=== PATIENT | female | born 1990 | race Caucasian/White ===

== ENCOUNTER 2019-04-16 01:55 | Emergency (ER) | payer SELFPAY ==
[2019-04-16] MEDS ORDERED: IBUPROFEN 400 MG TAB ONE (03:10)
[2019-04-16] MEDS ORDERED: IBUPROFEN 200 MG TAB PO ONE (03:10)
[2019-04-16 04:18] LABS: Urine Culture Reflex Order NOT NEEDED
[2019-04-16 04:51] LABS: Urine Bacteria <20 /HPF (<20); Urine RBC <5 /HPF (NONE SEEN)
--- NOTE | 2019-04-16 06:38 | ER ---
Nurse's Notes [facility] Name: Kirsten Ghotra Age: 28 yrs Sex: Female : 1990 Arrival Date: 04/16/2019 Time: 01:57 Bed 8 Private MD: Mario Villanueva Diagnosis: acute pelvic pain;dysuria;bacterial vaginosis Presentation: 04/16 02:23 Presenting complaint: Patient states: Lower back pain x 2 days. Denies urinary tl2 symptoms. Transition of care: patient was not received from another setting of care. Onset of symptoms was April 14, 2019. Risk Assessment: Do you want to hurt yourself or someone else? Patient reports no desire to harm self or others. Initial Sepsis Screen: Does the patient meet any 2 criteria? No. Patient's initial sepsis screen is negative. Does the patient have a suspected source of infection? No. Patient's initial sepsis screen is negative. Care prior to arrival: None. 02:23 Method Of Arrival: Ambulatory tl2 02:23 Acuity: ANNITA 3 tl2 Triage Assessment: 02:24 General: Appears in no apparent distress. comfortable, Behavior is calm, cooperative, tl2 appropriate for age. Pain: Complains of pain in lumbar area, left low back and right low back. Neuro: Level of Consciousness is awake, alert, obeys commands. : Denies burning with urination, urinary frequency. Musculoskeletal: Circulation, motion, and sensation intact. 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 - Social history:: Smoking status: Patient/guardian denies using tobacco. - Ebola Screening: : No symptoms or risks identified at this time. - Family history:: not pertinent. - Hospitalizations: : No recent hospitalization is reported. Screenin:26 Abuse screen: Denies threats or abuse. Nutritional screening: No deficits noted. tl2 Tuberculosis screening: No symptoms or risk factors identified. Fall Risk None identified. Assessment: 03:00 General: Appears in no apparent distress. Behavior is calm, cooperative, appropriate ea for age. Pain: Complains of pain in right low back and left low back. Neuro: Level of Consciousness is awake, alert, obeys commands, Oriented to person, place, time, situation. Cardiovascular: Patient's skin is warm and dry. Respiratory: Airway is patent Respiratory effort is even, unlabored, Respiratory pattern is regular, symmetrical. GI: Abdomen is non-distended, Bowel sounds present X 4 quads. : Parent/caregiver report the patient having urinary frequency. Derm: Skin is pink, warm \T\ dry. 04:18 Reassessment: Patient and/or family updated on plan of care and expected duration. Pain ea level reassessed. Patient is alert, oriented x 3, equal unlabored respirations, skin warm/dry/pink. 05:41 Reassessment: Patient and/or family updated on plan of care and expected duration. Pain ea level reassessed. Patient is alert, oriented x 3, equal unlabored respirations, skin warm/dry/pink. 06:51 Reassessment: Patient and/or family updated on plan of care and expected duration. Pain ea level reassessed. Patient is alert, oriented x 3, equal unlabored respirations, skin warm/dry/pink. Discharge instructions given to patient, verbalized the understanding of instruction. Patient states feeling better. Patient states symptoms have improved. Vital Signs: 02:24 BP 156 / 99; Pulse 65; Resp 18; Temp 98(O); Pulse Ox 97% on R/A; Weight 70.31 kg; tl2 Height 5 ft. 4 in. (162.56 cm); Pain 2/10; 03:04 BP 133 / 87; Pulse 60; Resp 18; Pulse Ox 98% on R/A; ea 04:23 BP 134 / 87; Pulse 57; Resp 18; Pulse Ox 98% ; ea 06:12 BP 137 / 110; Pulse 57; Resp 18; Pulse Ox 98% on R/A; tl2 06:40 BP 128 / 98; Pulse 60; Resp 18; Temp 97.8; Pulse Ox 98% ; ea 02:24 Body Mass Index 26.61 (70.31 kg, 162.56 cm) tl2 ED Course: 01:57 Patient arrived in ED. ag3 01:57 Mario Villanueva MD is Private Physician. ag3 02:09 Tahir Chou MD is Attending Physician. wa 02:24 Triage completed. tl2 02:24 Arm band placed on right wrist. tl2 02:26 Patient has correct armband on for positive identification. Bed in low position. Call tl2 light in reach. Side rails up X 1. 02:32 Yannick Olson, RN is Primary Nurse. rr5 06:12 Wet Prep Sent. tl2 06:12 GC (GONORR/CHLAMYDIA) Probe Sent. tl2 06:13 Assist provider with pelvic exam: Set up pelvic tray. Performed by Tahir Chou MD tl2 Specimens sent to lab. Patient tolerated well. 06:35 Tahir Chou MD is Referral Physician. wa 06:54 Patient did not have IV access during this emergency room visit. ea Administered Medications: 03:01 Drug: Motrin 600 mg Route: PO; ea 04:20 Follow up: Response: No adverse reaction ea Outcome: 06:37 Discharge ordered by . nc 06:53 Discharged to home ambulatory. ea 06:53 Condition: improved 06:53 Discharge instructions given to patient, Instructed on discharge instructions, follow up and referral plans. medication usage, Demonstrated understanding of instructions, follow-up care, medications, Prescriptions given X 4. 06:54 Patient left the ED. ea Signatures: Modesta Khan RN RN tl2 Melanie Huffman RN RN Tahir Benz MD MD wa Gomez, Alice 3 Yannick Olson, RN RN rr5
--- NOTE | 2019-04-16 06:38 | EDPHYS ---
Physician Documentation [facility] Name: Kirsten Ghotra Age: 28 yrs Sex: Female : 1990 Arrival Date: 04/16/2019 Time: 01:57 Bed 8 Private MD: Mario Villanueva ED Physician Tahir Chou HPI: 04/16 02:28 This 28 yrs old Female presents to ER via Ambulatory with complaints of Back wa Pain, Urinary Frequency. 02:28 The patient presents with pain that is acute. The symptoms are located in the low back. wa Onset: The symptoms/episode began/occurred 2 day(s) ago. The pain does not radiate. Associated signs and symptoms: Pertinent positives: dysuria, urine freq, Pertinent negatives: abdominal pain, hematuria, vomiting. The problem was sustained from unknown cause. Modifying factors: The patient symptoms are alleviated by nothing, the patient symptoms are aggravated by urination. Severity of symptoms: At their worst the symptoms were moderate, in the emergency department the symptoms are unchanged. The patient has experienced a previous episode, dx'd with kidney infection at the time. The patient has not recently seen a physician. 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 - Social history:: Smoking status: Patient/guardian denies using tobacco. - Ebola Screening: : No symptoms or risks identified at this time. - Family history:: not pertinent. - Hospitalizations: : No recent hospitalization is reported. ROS: 02:31 Constitutional: Negative for fever, chills, and weight loss, Eyes: Negative for injury, wa pain, redness, and discharge, ENT: Negative for injury, pain, and discharge, Neck: Negative for injury, pain, and swelling, Cardiovascular: Negative for chest pain, palpitations, and edema, Respiratory: Negative for shortness of breath, cough, wheezing, and pleuritic chest pain, Abdomen/GI: Negative for abdominal pain, nausea, vomiting, diarrhea, and constipation, MS/Extremity: Negative for injury and deformity, Skin: Negative for injury, rash, and discoloration, Neuro: Negative for headache, weakness, numbness, tingling, and seizure, Psych: Negative for depression, anxiety, suicide ideation, homicidal ideation, and hallucinations. 02:31 Back: Positive for pain at rest, Negative for injury or acute deformity. 02:31 : Positive for urinary symptoms, urinary frequency, burning with urination, vaginal discharge, Negative for injury or acute deformity, hematuria. Exam: 02:32 Constitutional: This is a well developed, well nourished patient who is awake, alert, wa and in no acute distress. Head/Face: Normocephalic, atraumatic. Eyes: Pupils equal round and reactive to light, extra-ocular motions intact. Lids and lashes normal. Conjunctiva and sclera are non-icteric and not injected. Cornea within normal limits. Periorbital areas with no swelling, redness, or edema. ENT: Nares patent. No nasal discharge, no septal abnormalities noted. Tympanic membranes are normal and external auditory canals are clear. Oropharynx with no redness, swelling, or masses, exudates, or evidence of obstruction, uvula midline. Mucous membranes moist. Neck: Trachea midline, no thyromegaly or masses palpated, and no cervical lymphadenopathy. Supple, full range of motion without nuchal rigidity, or vertebral point tenderness. No Meningismus. Chest/axilla: Normal chest wall appearance and motion. Nontender with no deformity. No lesions are appreciated. Cardiovascular: Regular rate and rhythm with a normal S1 and S2. No gallops, murmurs, or rubs. Normal PMI, no JVD. No pulse deficits. Respiratory: Lungs have equal breath sounds bilaterally, clear to auscultation and percussion. No rales, rhonchi or wheezes noted. No increased work of breathing, no retractions or nasal flaring. Back: No spinal tenderness. No costovertebral tenderness. Full range of motion. Skin: Warm, dry with normal turgor. Normal color with no rashes, no lesions, and no evidence of cellulitis. MS/ Extremity: Pulses equal, no cyanosis. Neurovascular intact. Full, normal range of motion. Neuro: Awake and alert, GCS 15, oriented to person, place, time, and situation. Cranial nerves II-XII grossly intact. Motor strength 5/5 in all extremities. Sensory grossly intact. Cerebellar exam normal. Normal gait. 02:32 Abdomen/GI: Inspection: abdomen appears normal, Bowel sounds: normal, Palpation: abdomen is soft and non-tender, in all quadrants. 02:32 Back: pain, is absent, ROM is normal. 02:32 : CVA tenderness, is absent. 06:33 : Pelvic Exam: External exam: is normal, Speculum exam: no cervicitis, os that is wa closed, bimanual exam reveals no cervical motion tenderness, discharge, white, curdish, the nurse was present for the exam. Vital Signs: 02:24 BP 156 / 99; Pulse 65; Resp 18; Temp 98(O); Pulse Ox 97% on R/A; Weight 70.31 kg; tl2 Height 5 ft. 4 in. (162.56 cm); Pain 2/10; 03:04 BP 133 / 87; Pulse 60; Resp 18; Pulse Ox 98% on R/A; ea 04:23 BP 134 / 87; Pulse 57; Resp 18; Pulse Ox 98% ; ea 06:12 BP 137 / 110; Pulse 57; Resp 18; Pulse Ox 98% on R/A; tl2 06:40 BP 128 / 98; Pulse 60; Resp 18; Temp 97.8; Pulse Ox 98% ; ea 02:24 Body Mass Index 26.61 (70.31 kg, 162.56 cm) tl2 MDM: 02:09 Patient medically screened. 02:33 Differential diagnosis: Pyelonephritis r/o UTI. 05:13 Data reviewed: vital signs, nurses notes. 06:05 Test interpretation: by ED physician or midlevel provider: UA noted negative. UPT wa negative. pelvic exam: noted d/c consistent with yeast infection. cultures sent. will cover with abx. Response to treatment: the patient's symptoms have markedly improved after treatment. 06:34 Test interpretation: by ED physician or midlevel provider: noted clue cells. wa clinically, yeast although negaitve per wet prep. cover. 04/16 02:04 Order name: Urine Culture [facility] 04/16 02:04 Order name: Urine Microscopic Only; Complete Time: 05:03 [facility] 04/16 02:29 Order name: Urine Dipstick--Ancillary (enter results) [facility] 04/16 02:29 Order name: Urine --Ancillary (enter results) cm6 04/16 05:04 Order name: GC (GONORR/CHLAMYDIA) Probe ks 04/16 05:04 Order name: Wet Prep; Complete Time: 06:32 ks 04/16 02:04 Order name: Urine Test (obtain specimen); Complete Time: 02:23 [facility] 04/16 02:04 Order name: Urine Dipstick-Ancillary (obtain specimen); Complete Time: 02:23 [facility] 04/16 05:04 Order name: Pelvic Exam Setup; Complete Time: 06:12 ks Administered Medications: 03:01 Drug: Motrin 600 mg Route: PO; ea 04:20 Follow up: Response: No adverse reaction ea Disposition: 04/16/19 06:37 Discharged to Home. Impression: acute pelvic pain, dysuria, bacterial vaginosis. - Condition is Stable. - Discharge Instructions: Bacterial Vaginosis. - Prescriptions for Flagyl 500 mg Oral Tablet - take 1 tablet by ORAL route every 12 hours for 7 days; 14 tablet. Zofran 4 mg Oral Tablet - take 1 tablet by ORAL route every 12 hours As needed; 20 tablet. Ibuprofen 600 mg Oral Tablet - take 1 tablet by ORAL route every 6 hours As needed take with food; 30 tablet. Fluconazole 150 mg Oral Tablet - take 1 tablet by ORAL route once daily; 30 tablet. - Work release form, Medication Reconciliation Form, Thank You Letter, Antibiotic Education, Prescription Opioid Use form. - Follow up: Tahir Chou MD; When: 1 - 2 days; Reason: Fever > 102 F, Recheck today's complaints. - Problem is new. - Symptoms have improved. - Notes: take antibiotics as prescribed. follow up with your doctor within the next business day Signatures: Dispatcher [employer] EDMS Niyah Bell, CLEANER AND PREPARER-C CLEANER AND PREPARER-Csnw Modesta Khan RN RN tl2 Melanie Huffman RN RN ea Appiah, William, MD MD ks Corrections: (The following items were deleted from the chart) 06:54 06:37 04/16/2019 06:37 Discharged to Home. Impression: acute pelvic pain; dysuria; ea bacterial vaginosis. Condition is Stable. Forms are Medication Reconciliation Form, Thank You Letter, Antibiotic Education, Prescription Opioid Use. Follow up: Dr. aThir Chou; When: 1 - 2 days; Reason: Fever > 102 F, Recheck today's complaints. Problem is new. Symptoms have improved. wa
[2019-04-16 15:14] LABS: Urine Blood TRACE (NEG); Urine Glucose NEGATIVE (NEG); Urine Protein NEGATIVE (NEG); Urine Specific Gravity >1.030 (1.005-1.030)
[2019-04-18 14:01] LABS: C.trachomatis RNA,TMA Detected (Not Detected)
== END 2019-04-16 06:54 | disposition home or self-care (01) ==
LOC: ER 01:55
DX: N76.0 Acute vaginitis (principal); R30.0 Dysuria; R10.2 Pelvic and perineal pain
CPT/HCPCS: 81003; 81015; 81025; 87086; 87088; 87210; 87490; 87590; 99284

== ENCOUNTER 2019-11-02 01:24 | Emergency (ER) | payer SELFPAY ==
[2019-11-02] MEDS ORDERED: NA CHLORIDE 0.9% 1,000 ML ONE (02:16)
[2019-11-02] MEDS ORDERED: ONDANSETRON 4 MG/2 ML VIAL ONE (02:16)
[2019-11-02] MEDS ORDERED: MORPHINE 2 MG/ML SYR ONE (02:16)
[2019-11-02] MEDS ORDERED: CEFTRIAXONE/SWI 1gm 1 GM/10 ML SYR ONE (02:16)
[2019-11-02 02:17] LABS: Urine Blood 2+ (NEG); Urine Glucose NEGATIVE (NEG); Urine Protein 2+ (NEG); Urine Specific Gravity 1.025 (1.005-1.030)
[2019-11-02 02:37] LABS: Urine Bacteria >50 /HPF (<20)
[2019-11-02 02:39] LABS: Absolute Lymphocytes (CBC) 2.3 K/uL (0.7-4.9); Basophils % 0.4 % (0-1.3); Hematocrit 42.1 % (36.0-45.0); Lymphocytes % 18.1 % (15.3-44.8); MPV 8.1 fL (7.6-11.3)
[2019-11-02 02:39] LABS: Urine Amorphous Sediment 1+ /HPF (NONE SEEN); Urine Culture Reflex Order NOT NEEDED
[2019-11-02 02:46] LABS: ALT/SGPT 50 U/L (12-78); AST/SGOT 19 U/L (15-37); Alkaline Phosphatase 71 U/L (45-117); BUN Blood Urea Nitrogen 14 mg/dL (7-18); Bicarbonate 28 mmol/L (21-32); Bilirubin Direct 0.1 mg/dL (0-0.2); Bilirubin Total 0.5 mg/dL (0.2-1.0); Glucose Level 93 mg/dL (74-106); Lipase 55 U/L (73-393); Potassium 3.8 mmol/L (3.5-5.1); Protein, Total 7.6 g/dL (6.4-8.2); Sodium Level 137 mmol/L (136-145)
--- NOTE | 2019-11-02 03:28 | ER ---
Nurse's Notes [facility] Name: Kirsten Ghotra Age: 29 yrs Sex: Female : 1990 Arrival Date: 11/02/2019 Time: 01:26 Bed 6 Private MD: Diagnosis: Abdominal tenderness;Urinary tract infection, site not specified;Other ovarian cysts Presentation: 11/02 01:40 Presenting complaint: Patient states: "I feel like my intestines are having throbbing jd3 pain. I ate a bag of chips earlier and the went from a throbbing pain to a sharp pain.". Transition of care: patient was not received from another setting of care. Onset of symptoms was November 02, 2019. Risk Assessment: Do you want to hurt yourself or someone else?. Initial Sepsis Screen: Does the patient meet any 2 criteria? No. Patient's initial sepsis screen is negative. Does the patient have a suspected source of infection? No. Patient's initial sepsis screen is negative. Care prior to arrival: None. 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 - Social history:: Smoking status: Patient/guardian denies using tobacco. - Ebola Screening: : Patient negative for fever greater than or equal to 101.5 degrees Fahrenheit, and additional compatible Ebola Virus Disease symptoms. Screenin:44 Abuse screen: Denies threats or abuse. Nutritional screening: No deficits noted. jd3 Tuberculosis screening: No symptoms or risk factors identified. Fall Risk Ambulatory Aid- None/Bed Rest/Nurse Assist (0 pts). Gait- Normal/Bed Rest/Wheelchair (0 pts) Mental Status- Oriented to own ability (0 pts). Total Espinoza Fall Scale indicates No Risk (0-24 pts). Assessment: 01:43 General: Appears in no apparent distress. uncomfortable, Behavior is calm, cooperative, jd3 appropriate for age. Pain: Complains of pain in abdomen Quality of pain is described as sharp, throbbing. Neuro: Level of Consciousness is awake, alert, obeys commands, Oriented to person, place, time, situation. Cardiovascular: Denies chest pain, Capillary refill < 3 seconds Patient's skin is warm and dry. Respiratory: Airway is patent Respiratory effort is even, unlabored, Respiratory pattern is regular, symmetrical, Denies cough, shortness of breath. GI: Abdomen is round non-distended, Bowel sounds present X 4 quads. Abd is soft and non tender X 4 quads. Reports lower abdominal pain, upper abdominal pain, Patient currently denies diarrhea, nausea, vomiting. : Reports burning with urination. EENT: No signs and/or symptoms were reported regarding the EENT system. Derm: Skin is intact, Skin is dry, Skin is normal, Skin temperature is warm. Musculoskeletal: Circulation, motion, and sensation intact. Range of motion: intact in all extremities. 02:22 Reassessment: Patient appears in no apparent distress at this time. No changes from [facility] previously documented assessment. Patient and/or family updated on plan of care and expected duration. Pain level reassessed. Patient is alert, oriented x 3, equal unlabored respirations, skin warm/dry/pink. 03:17 Reassessment: Patient appears in no apparent distress at this time. Patient and/or jd3 family updated on plan of care and expected duration. Pain level reassessed. Patient is alert, oriented x 3, equal unlabored respirations, skin warm/dry/pink. Patient states feeling better. 03:43 Reassessment: Patient appears in no apparent distress at this time. Patient and/or jd3 family updated on plan of care and expected duration. Pain level reassessed. Patient is alert, oriented x 3, equal unlabored respirations, skin warm/dry/pink. Patient denies pain at this time. Patient states feeling better. Vital Signs: 01:42 BP 145 / 99; Pulse 85; Resp 16 S; Temp 98.3(O); Pulse Ox 99% on R/A; Weight 68.04 kg jd3 (R); Height 5 ft. 4 in. (162.56 cm) (R); Pain 5/10; 02:23 BP 141 / 100; Pulse 71; Resp 18 S; Pulse Ox 98% on R/A; jd3 03:17 BP 132 / 84; Pulse 78; Resp 17 S; Pulse Ox 100% on R/A; jd3 01:42 Body Mass Index 25.75 (68.04 kg, 162.56 cm) jd3 ED Course: 01:26 Patient arrived in ED. cl3 01:27 Jimmy Jensen MD is Attending Physician. christian 01:40 David Qiu, RN is Primary Nurse. jd3 01:41 Triage completed. jd3 01:42 Arm band placed on. jd3 01:44 Patient has correct armband on for positive identification. Bed in low position. Call j light in reach. Side rails up X 1. 01:55 Radiology exam delayed due to test not completed at this time. eh 01:55 CT Stone Protocol Sent. ea 02:08 Inserted saline lock: 20 gauge in right antecubital area, using aseptic technique. mw2 Blood collected. 02:31 CT completed. Patient tolerated procedure well. Patient moved to CT via wheelchair. Patient moved back from CT. 02:36 CT Stone Protocol In Process Unspecified. EDMS 03:20 Issac Lewis MD is Referral Physician. christian 03:20 Sara Savage MD is Referral Physician. christian 03:41 No provider procedures requiring assistance completed. IV discontinued, intact, jd3 bleeding controlled, No redness/swelling at site. Pressure dressing applied. Administered Medications: 02:40 Drug: NS 0.9% 1000 ml Route: IV; Rate: 1 bolus; Site: right antecubital; jd3 03:40 Follow up: Response: No adverse reaction; IV Status: Completed infusion; IV Intake: jd3 1000ml 02:40 Drug: Zofran 4 mg Route: IVP; Site: right antecubital; jd3 03:40 Follow up: Response: No adverse reaction jd3 02:41 Drug: morphine 2 mg Route: IVP; Site: right antecubital; jd3 03:40 Follow up: Response: No adverse reaction; RASS: Alert and Calm (0) jd3 02:41 Drug: Rocephin 1 grams Route: IV; Rate: per protocol; Site: right antecubital; jd3 02:45 Follow up: Response: No adverse reaction; IV Status: Completed infusion; IV Intake: [id number] 03:39 Drug: LevaQUIN 500 mg Route: PO; jd3 03:40 Follow up: Response: Medication administered at discharge. jd3 Intake: 02:45 IV: 10ml; Total: 10ml. jd3 03:40 IV: 1000ml; Total: 1010ml. jd3 Outcome: 03:22 Discharge ordered by . christian 03:42 Discharged to home ambulatory, with family. jd3 03:42 Condition: stable 03:42 Discharge instructions given to patient, family, Instructed on discharge instructions, follow up and referral plans. medication usage, Demonstrated understanding of instructions, follow-up care, medications, Prescriptions given X 4. 03:43 Patient left the ED. jd3 Addendum: 11/05/2019 07:35 Addendum: Culture Results: Positive urine culture. No further action required. Bacteria h b sensitive to prescribed antibiotic. Signatures: Dispatcher [employer] EDJimmy Escobedo MD MD cha Hagler, Ervin eh Baxter, Heather, RN Melanie Trevino RN RN ea Davies, Jonathon, RN RN jd3 [place], MyKena mw2 Es Hayes cl3
--- NOTE | 2019-11-02 03:30 | EDPHYS ---
Physician Documentation [facility] Name: Kirsten Ghotra Age: 29 yrs Sex: Female : 1990 Arrival Date: 11/02/2019 Time: 01: Bed 6 Private MD: IVON Physician Jimmy Jensen HPI: 11/02 01:48 This 29 yrs old Female presents to ER via Ambulatory with complaints of christian Abdominal Pain. 01:48 The patient presents with abdominal pain abdominal distention. The patient complains of christian pain in the left low back and left mid back. The pain radiates. Onset: The symptoms/episode began/occurred just prior to arrival, yesterday. Modifying factors: The symptoms are alleviated by nothing. the symptoms are aggravated by. 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 - Social history:: Smoking status: Patient/guardian denies using tobacco. - Ebola Screening: : Patient negative for fever greater than or equal to 101.5 degrees Fahrenheit, and additional compatible Ebola Virus Disease symptoms. ROS: 01:48 Constitutional: Negative for fever, chills, and weight loss, Eyes: Negative for injury, christian pain, redness, and discharge, ENT: Negative for injury, pain, and discharge, Neck: Negative for injury, pain, and swelling, Cardiovascular: Negative for chest pain, palpitations, and edema, Respiratory: Negative for shortness of breath, cough, wheezing, and pleuritic chest pain, Back: Negative for injury and pain, : Negative for injury, bleeding, discharge, and swelling, MS/Extremity: Negative for injury and deformity, Skin: Negative for injury, rash, and discoloration, Neuro: Negative for headache, weakness, numbness, tingling, and seizure, Psych: Negative for depression, anxiety, suicide ideation, homicidal ideation, and hallucinations, Allergy/Immunology: Negative for hives, rash, and allergies, Endocrine: Negative for neck swelling, polydipsia, polyuria, polyphagia, and marked weight changes, Hematologic/Lymphatic: Negative for swollen nodes, abnormal bleeding, and unusual bruising. 01:48 Abdomen/GI: Positive for nausea and vomiting, of the posterior aspect of left lateral abdomen, anterior aspect of left lateral abdomen, left upper quadrant and left lower quadrant. Exam: 01:48 Constitutional: This is a well developed, well nourished patient who is awake, alert, christian and in no acute distress. Head/Face: Normocephalic, atraumatic. Eyes: Pupils equal round and reactive to light, extra-ocular motions intact. Lids and lashes normal. Conjunctiva and sclera are non-icteric and not injected. Cornea within normal limits. Periorbital areas with no swelling, redness, or edema. ENT: Nares patent. No nasal discharge, no septal abnormalities noted. Tympanic membranes are normal and external auditory canals are clear. Oropharynx with no redness, swelling, or masses, exudates, or evidence of obstruction, uvula midline. Mucous membranes moist. Neck: Trachea midline, no thyromegaly or masses palpated, and no cervical lymphadenopathy. Supple, full range of motion without nuchal rigidity, or vertebral point tenderness. No Meningismus. Chest/axilla: Normal chest wall appearance and motion. Nontender with no deformity. No lesions are appreciated. Cardiovascular: Regular rate and rhythm with a normal S1 and S2. No gallops, murmurs, or rubs. Normal PMI, no JVD. No pulse deficits. Respiratory: Lungs have equal breath sounds bilaterally, clear to auscultation and percussion. No rales, rhonchi or wheezes noted. No increased work of breathing, no retractions or nasal flaring. Abdomen/GI: Soft, non-tender, with normal bowel sounds. No distension or tympany. No guarding or rebound. No evidence of tenderness throughout. Back: No spinal tenderness. No costovertebral tenderness. Full range of motion. Skin: Warm, dry with normal turgor. Normal color with no rashes, no lesions, and no evidence of cellulitis. MS/ Extremity: Pulses equal, no cyanosis. Neurovascular intact. Full, normal range of motion. Neuro: Awake and alert, GCS 15, oriented to person, place, time, and situation. Cranial nerves II-XII grossly intact. Motor strength 5/5 in all extremities. Sensory grossly intact. Cerebellar exam normal. Normal gait. Psych: Awake, alert, with orientation to person, place and time. Behavior, mood, and affect are within normal limits. Vital Signs: 01:42 BP 145 / 99; Pulse 85; Resp 16 S; Temp 98.3(O); Pulse Ox 99% on R/A; Weight 68.04 kg jd3 (R); Height 5 ft. 4 in. (162.56 cm) (R); Pain 5/10; 02:23 BP 141 / 100; Pulse 71; Resp 18 S; Pulse Ox 98% on R/A; jd3 03:17 BP 132 / 84; Pulse 78; Resp 17 S; Pulse Ox 100% on R/A; jd3 01:42 Body Mass Index 25.75 (68.04 kg, 162.56 cm) [facility] MDM: 01:27 Patient medically screened. [facility] 01:51 Data reviewed: vital signs, nurses notes. [facility] 11/02 01:41 Order name: Urine Microscopic Only; Complete Time: 03:19 banner 11/02 01:41 Order name: Urine Culture banner 11/02 01:48 Order name: Basic Metabolic Panel; Complete Time: 03:19 [facility] 11/02 01:48 Order name: CBC with Diff; Complete Time: 03:19 [facility] 11/02 01:48 Order name: Creatinine for Radiology; Complete Time: 03:19 [facility] 11/02 01:48 Order name: Hepatic Function; Complete Time: 03:19 [facility] 11/02 01:48 Order name: Lipase; Complete Time: 03:19 [facility] 11/02 01:48 Order name: CT Stone Protocol [facility] 11/02 02:00 Order name: Urine Dipstick--Ancillary (enter results); Complete Time: 02:30 banner 11/02 02:00 Order name: Urine --Ancillary (enter results); Complete Time: 02:30 banner 11/02 01:48 Order name: IV Saline Lock; Complete Time: 01:55 [facility] 11/02 01:48 Order name: Labs collected and sent; Complete Time: 01:55 [facility] 11/02 01:48 Order name: Urine Test (obtain specimen); Complete Time: 01:55 [facility] Administered Medications: 02:40 Drug: NS 0.9% 1000 ml Route: IV; Rate: 1 bolus; Site: right antecubital; jd3 03:40 Follow up: Response: No adverse reaction; IV Status: Completed infusion; IV Intake: jd3 1000ml 02:40 Drug: Zofran 4 mg Route: IVP; Site: right antecubital; jd3 03:40 Follow up: Response: No adverse reaction jd3 02:41 Drug: morphine 2 mg Route: IVP; Site: right antecubital; jd3 03:40 Follow up: Response: No adverse reaction; RASS: Alert and Calm (0) jd3 02:41 Drug: Rocephin 1 grams Route: IV; Rate: per protocol; Site: right antecubital; jd3 02:45 Follow up: Response: No adverse reaction; IV Status: Completed infusion; IV Intake: [id number] 03:39 Drug: LevaQUIN 500 mg Route: PO; jd3 03:40 Follow up: Response: Medication administered at discharge. jd3 Disposition: 11/02/19 03:22 Discharged to Home. Impression: Abdominal tenderness, Urinary tract infection, site not specified, Other ovarian cysts. - Condition is Stable. - Discharge Instructions: Abdominal Pain, Adult, Dysuria, Urinary Tract Infection, Adult, Urinary Tract Infection, Adult, [id number], Abdominal Pain, Adult, [id number]. - Prescriptions for Bentyl 20 mg Oral Tablet - take 1 tablet by ORAL route every 6 hours As needed; 20 tablet. Levaquin 500 mg Oral Tablet - take 1 tablet by ORAL route once daily for 7 days; 7 tablet. Pepcid 20 mg Oral Tablet - take 1 tablet by ORAL route every 12 hours for 10 days; 20 tablet. Zofran 4 mg Oral Tablet - take 1 tablet by ORAL route every 12 hours As needed; 20 tablet. - Medication Reconciliation Form, Thank You Letter, Antibiotic Education, Prescription Opioid Use form. - Follow up: Private Physician; When: 2 - 3 days; Reason: Recheck today's complaints, Continuance of care, Re-evaluation by your physician. Follow up: Issac Lewis MD; When: 2 - 3 days; Reason: Recheck today's complaints, Re-evaluation by your physician. Follow up: Sara Savage MD; When: 2 - 3 days; Reason: Recheck today's complaints, Re-evaluation by your physician. - Problem is new. - Symptoms have improved. Signatures: Dispatcher [employer] [facility] Jimmy Jensen MD MD cha Davies, Jonathon RN RN jd3 Corrections: (The following items were deleted from the chart) 03:24 03:22 11/02/2019 03:22 Discharged to Home. Impression: Abdominal tenderness; Urinary christian tract infection, site not specified. Condition is Stable. Forms are Medication Reconciliation Form, Thank You Letter, Antibiotic Education, Prescription Opioid Use. Follow up: Private Physician; When: 2 - 3 days; Reason: Recheck today's complaints, Continuance of care, Re-evaluation by your physician. Follow up: Issac Lewis; When: 2 - 3 days; Reason: Recheck today's complaints, Re-evaluation by your physician. Follow up: Sara Savage; When: 2 - 3 days; Reason: Recheck today's complaints, Re-evaluation by your physician. Problem is new. Symptoms have improved. christian 03:43 03:24 11/02/2019 03:22 Discharged to Home. Impression: Abdominal tenderness; Urinary jd3 tract infection, site not specified; Other ovarian cysts. Condition is Stable. Discharge Instructions: Abdominal Pain, Adult, Dysuria, Urinary Tract Infection, Adult, Urinary Tract Infection, Adult, Sarz-ci-Ahul, Abdominal Pain, Adult, [id number]. Prescriptions for Bentyl 20 mg Oral Tablet - take 1 tablet by ORAL route every 6 hours As needed; 20 tablet, Levaquin 500 mg Oral Tablet - take 1 tablet by ORAL route once daily for 7 days; 7 tablet, Pepcid 20 mg Oral Tablet - take 1 tablet by ORAL route every 12 hours for 10 days; 20 tablet, Zofran 4 mg Oral Tablet - take 1 tablet by ORAL route every 12 hours As needed; 20 tablet. and Forms are Medication Reconciliation Form, Thank You Letter, Antibiotic Education, Prescription Opioid Use. Follow up: Private Physician; When: 2 - 3 days; Reason: Recheck today's complaints, Continuance of care, Re-evaluation by your physician. Follow up: Issac Lewis; When: 2 - 3 days; Reason: Recheck today's complaints, Re-evaluation by your physician. Follow up: Sara Savage; When: 2 - 3 days; Reason: Recheck today's complaints, Re-evaluation by your physician. Problem is new. Symptoms have improved. christian
[2019-11-02] MEDS ORDERED: levoFLOXacin 500 MG TAB ONE (03:36)
[2019-11-02 04:01] VITALS: TEMP 98.3
[2019-11-02 04:04] VITALS: BP 132/84; O2SAT 100
--- NOTE | 2019-11-02 10:34 | RAD REPORT ---
EXAM DESCRIPTION: CT - Stone Protocol - 11/02/2019 3:44 am CLINICAL HISTORY: The patient is 29 years old and is Female; ABD PAIN TECHNIQUE: Axial computed tomography images of the abdomen and pelvis without intravenous contrast. Sagittal and coronal reformatted images were created and reviewed. This CT exam was performed usi ng one or more of the following dose reduction techniques: automated exposure control, adjustment o f the mA and/or kV according to patient size, and/or use of iterative reconstruction technique. DLP: 559 mGy*cm COMPARISON: None. FINDINGS: LUNG BASES: Lung bases are clear. HEART: Visualized heart is normal. ABDOMEN: LIVER: Diffuse hepatic steatosis. GALLBLADDER AND BILE DUCTS: Unremarkable. No calcified stones. No ductal dilation. PANCREAS: Unremarkable. No ductal dilation. SPLEEN: Unremarkable. No splenomegaly. ADRENALS: Unremarkable. No mass. KIDNEYS AND URETERS: No radiopaque stone, hydronephrosis or large ureter. STOMACH AND BOWEL: Unremarkable. No obstruction. No mucosal thickening. PELVIS: APPENDIX: The appendix is seen and is within normal limits. BLADDER: Bladder is decompressed. No stones. REPRODUCTIVE: Bilateral ovarian cysts measuring up to 3.2 cm on the left. ABDOMEN and PELVIS: INTRAPERITONEAL SPACE: Unremarkable. No free air. No significant fluid collection. BONES/JOINTS: Small retrolisthesis of L4 on L5. Mild posterior wedging of L5. Bilateral L5 spondyl olysis. No dislocation. SOFT TISSUES: Small fat-containing umbilical hernia. VASCULATURE: Unremarkable. No abdominal aortic aneurysm. LYMPH NODES: Unremarkable. No enlarged lymph nodes. IMPRESSION: 1. No acute abdominal or pelvic abnormality. 2. Diffuse hepatic steatosis. 3. Bilateral ovarian cysts measuring up to 3.2 cm on the left. Recommend follow-up pelvic US in 6-1 2 weeks. Reference: J Am Kecia Radiol 2013;10:675-681. 4. Small retrolisthesis of L4 on L5. Mild posterior wedging of L5. Bilateral L5 spondylolysis. Electronically signed by: Carlos A Taylor DO 11/02/2019 2:50 AM CUSTODIAL AIDE Due to temporary technical issues with the PACS/Fluency reporting system, reports are being signed by the in house radiologist as a courtesy to ensure prompt reporting. The interpreting radiologist is f ully responsible for the content of the report.
== END 2019-11-02 03:43 | disposition home or self-care (01) ==
LOC: ER 01:24
DX: N39.0 Urinary tract infection, site not specified (principal); N83.299 Other ovarian cyst, unspecified side
CPT/HCPCS: 36415; 74176; 76377; 80048; 80076; 81003; 81015; 81025; 83690; 85025; 87077; 87086; 87088; 87186; 96361; 96374; 96375; 99284; J0696; J2270; J2405; J7030

== ENCOUNTER 2020-11-25 18:14 | Emergency (ER) | payer SELFPAY ==
--- NOTE | 2020-11-25 22:06 | ER ---
Nurse's Notes [facility] Name: Kirsten Ghotra Age: 30 yrs Sex: Female : 1990 Arrival Date: 11/25/2020 Time: 18:18 Bed 23 Private MD: Diagnosis: Pelvic and perineal pain Presentation: 11/25 19:12 Chief complaint: Patient states: BF was tested and treated for few days ago. Left lower ca1 back pain x 1 week. Denies urinary symptoms. Coronavirus screen: Client denies travel out of the [place] in the last 14 days. At this time, the client does not indicate any symptoms associated with coronavirus-19. Ebola Screen: Patient negative for fever greater than or equal to 101.5 degrees Fahrenheit, and additional compatible Ebola Virus Disease symptoms Patient denies exposure to infectious person. Patient denies travel to an Ebola-affected area in the 21 days before illness onset. No symptoms or risks identified at this time. Initial Sepsis Screen: Does the patient meet any 2 criteria? No. Patient's initial sepsis screen is negative. Does the patient have a suspected source of infection? No. Patient's initial sepsis screen is negative. Risk Assessment: Do you want to hurt yourself or someone else? Patient reports no desire to harm self or others. Onset of symptoms was November 25, 2020. 19:12 Method Of Arrival: Ambulatory ca1 19:12 Acuity: ANNITA 4 ca1 SHANK TAPER: 19:15 LMP 11/17/2020 ca1 Historical: - Allergies: 19:15 No Known Allergies; ca1 - Home Meds: 19:15 None [Active]; ca1 - PMHx: 19:15 None; ca1 - PSHx: 19:15 None; ca1 - Immunization history:: Flu vaccine is not up to date. - Social history:: Smoking status: Patient denies any tobacco usage or history of. Patient/guardian denies using alcohol, street drugs, The patient lives with family. - Family history:: not pertinent. Screenin:53 Abuse screen: Denies threats or abuse. Denies injuries from another. Nutritional zb screening: No deficits noted. Tuberculosis screening: No symptoms or risk factors identified. Fall Risk None identified. Assessment: 21:47 General: Appears in no apparent distress. comfortable, Behavior is calm, cooperative, zb appropriate for age. Neuro: Level of Consciousness is awake, alert, obeys commands, Oriented to person, place, time, situation. Neuro: Neuro: Level of Consciousness is awake, alert, obeys commands, Oriented to person, place, time. Cardiovascular: Capillary refill < 3 seconds in bilateral fingers Patient's skin is warm and dry. Respiratory: Airway is patent Respiratory effort is even, unlabored, Respiratory pattern is regular, symmetrical. GI: Abdomen is round obese. EENT: Derm: Skin is intact, is healthy with good turgor, Skin is dry, Skin is normal, Skin temperature is warm. Musculoskeletal: Circulation, motion, and sensation intact. Capillary refill < 3 seconds, in bilateral fingers. Range of motion: intact in all extremities. Vital Signs: 19:12 BP 135 / 81; Pulse 68; Resp 16 S; Temp 97.8(TE); Pulse Ox 100% on R/A; Weight 72.57 kg ca1 (R); Height 5 ft. 4 in. (162.56 cm) (R); Pain 0/10; 19:12 Body Mass Index 27.46 (72.57 kg, 162.56 cm) ca1 ED Course: 18:18 Patient arrived in ED. ds1 19:15 Triage completed. ca1 19:15 Arm band placed on right wrist. ca1 21:20 Bria Jackson MD is Attending Physician. ma2 21:26 Ashley Torres RN is Primary Nurse. zb 21:53 Patient has correct armband on for positive identification. Bed in low position. Call zb light in reach. Pulse ox on. NIBP on. Door closed. Noise minimized. 22:00 No provider procedures requiring assistance completed. Patient did not have IV access sg during this emergency room visit. Administered Medications: No medications were administered Outcome: 22:04 Discharge ordered by . ma2 22:04 Discharged to home ambulatory, with family. sg 22:04 Condition: good 22:04 Discharge instructions given to patient, Instructed on discharge instructions, follow up and referral plans. safe sex practices, safety practices, Demonstrated understanding of instructions, follow-up care. 22:05 Patient left the ED. sg Signatures: Abdullahi Taylor RN RN Lola Mendez ds1 Alzahri, Mohammad, MD MD ma2 Acob, Germaine, RN RN ca1 Brown, Ashley, RN RN zb
--- NOTE | 2020-11-25 22:06 | EDPHYS ---
Physician Documentation [facility] Name: Kirsten Ghotra Age: 30 yrs Sex: Female : 1990 Arrival Date: 11/25/2020 Time: 18:18 Bed 23 Private MD: ED Physician Bria Jackson HPI: 11/25 22:02 This 30 yrs old Female presents to ER via Ambulatory with complaints of ma2 Pelvic Pain. 22:02 The patient presents with flank pain. Onset: The symptoms/episode began/occurred ma2 gradually, 2 day(s) ago. Associated signs and symptoms: Pertinent positives: Pertinent negatives: constipation. Severity of symptoms: At their worst the symptoms were very mild, in the emergency department the symptoms have resolved. The patient has not experienced similar symptoms in the past. partner has clamydia, patient is here for std testing no symptoms. 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 - Social history:: Smoking status: Patient denies any tobacco usage or history of. Patient/guardian denies using alcohol, street drugs, The patient lives with family. - Family history:: not pertinent. ROS: 22:02 Negative for injury or acute deformity, urinary frequency, flank pain. ma2 22:02 Constitutional: Negative for fever, chills, and weight loss. 22:02 All other systems are negative. Exam: 22:02 Constitutional: This is a well developed, well nourished patient who is awake, alert, ma2 and in no acute distress. Head/Face: Normocephalic, atraumatic. Chest/axilla: Normal chest wall appearance and motion. Nontender with no deformity. No lesions are appreciated. Cardiovascular: Regular rate and rhythm with a normal S1 and S2. No gallops, murmurs, or rubs. Normal PMI, no JVD. No pulse deficits. Respiratory: Lungs have equal breath sounds bilaterally, clear to auscultation and percussion. No rales, rhonchi or wheezes noted. No increased work of breathing, no retractions or nasal flaring. Abdomen/GI: Soft, non-tender, with normal bowel sounds. No distension or tympany. No guarding or rebound. No evidence of tenderness throughout. Back: No spinal tenderness. No costovertebral tenderness. Full range of motion. Skin: Warm, dry with normal turgor. Normal color with no rashes, no lesions, and no evidence of cellulitis. MS/ Extremity: Pulses equal, no cyanosis. Neurovascular intact. Full, normal range of motion. Neuro: Awake and alert, GCS 15, oriented to person, place, time, and situation. Cranial nerves II-XII grossly intact. Motor strength 5/5 in all extremities. Sensory grossly intact. Cerebellar exam normal. Normal gait. Vital Signs: 19:12 BP 135 / 81; Pulse 68; Resp 16 S; Temp 97.8(TE); Pulse Ox 100% on R/A; Weight 72.57 kg ca1 (R); Height 5 ft. 4 in. (162.56 cm) (R); Pain 0/10; 19:12 Body Mass Index 27.46 (72.57 kg, 162.56 cm) ca1 MDM: 21:21 Patient medically screened. ma2 22:02 Differential diagnosis: nonspecific abdominal pain, urinary tract infection, vaginosis. ma2 Data reviewed: vital signs, nurses notes. Counseling: I had a detailed discussion with the patient and/or guardian regarding: the historical points, exam findings, and any diagnostic results supporting the discharge/admit diagnosis, the presence of at least one elevated blood pressure reading (>120/80) during this emergency department visit, the need for outpatient follow up. Response to treatment: the patient's symptoms have resolved after treatment. 11/25 21:55 Order name: Urine --Ancillary (enter results) tt3 11/25 21:55 Order name: Urine Dipstick--Ancillary (enter results) tt3 11/25 21:22 Order name: Urine Dipstick-Ancillary (obtain specimen): test please; Complete ma2 Time: 21:54 11/25 21:54 Order name: Urine Test (obtain specimen); Complete Time: 21:54 tt3 Administered Medications: No medications were administered Disposition: 11/25/20 22:04 Discharged to Home. Impression: Pelvic and perineal pain. - Condition is Stable. - Discharge Instructions: Sexually Transmitted Disease, [id number]. - Medication Reconciliation Form, Thank You Letter, Antibiotic Education, Prescription Opioid Use form. - Follow up: Private Physician; When: Tomorrow; Reason: Continuance of care. Signatures: Dispatcher [employer] EDAbdullahi Hughes RN RN sg Bria Jackson MD MD ma2 Germaine Roberto RN RN [facility] Azam Freire3 Corrections: (The following items were deleted from the chart) 22:05 22:04 11/25/2020 22:04 Discharged to Home. Impression: Pelvic and perineal pain. sg Condition is Stable. Forms are Medication Reconciliation Form, Thank You Letter, Antibiotic Education, Prescription Opioid Use. Follow up: Private Physician; When: Tomorrow; Reason: Continuance of care. [email or web address]
[2020-11-25 22:29] VITALS: BP 135/81; TEMP 97.8; O2SAT 100
[2020-11-25 22:30] LABS: Urine Blood NEGATIVE (NEG); Urine Glucose NEGATIVE (NEG); Urine Protein NEGATIVE (NEG); Urine Specific Gravity >1.030 (1.005-1.030); Urine pH 6.5 (5.0-7.0)
== END 2020-11-25 22:05 | disposition home or self-care (01) ==
LOC: ER 18:14
DX: R10.2 Pelvic and perineal pain (principal)
CPT/HCPCS: 81003; 81025; 99283

== ENCOUNTER 2021-10-08 21:05 | Emergency (ER) | payer SELFPAY ==
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
--- NOTE | 2021-10-08 22:26 | EDPHYS ---
Physician Documentation [facility] Name: Kirsten Ghotra Age: 31 yrs Sex: Female : 1990 Arrival Date: 10/08/2021 Time: 21:07 Bed 12 Private MD: ED Physician Jimmy Jensen HPI: 10/08 22:30 This 31 yrs old Female presents to ER via Ambulatory with complaints of Arm jr8 Injury, Arm Problem. 22:30 A 31-year-old female that presented to the emergency room with complaints of left arm jr8 pain for the past week. Stated that she then started to have tingling to her right thumb. Had pulled hands the other day which aggravated the right hand. Has been splinting the left side for the last week and is now feeling somewhat better.. 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 - Social history:: Smoking status: Patient denies any tobacco usage or history of. Patient uses alcohol, Patient/guardian denies using street drugs. ROS: 22:30 Eyes: Negative for injury, pain, redness, and discharge, ENT: Negative for injury, jr8 pain, and discharge, Neck: Negative for injury, pain, and swelling, Cardiovascular: Negative for chest pain, palpitations, and edema, Respiratory: Negative for shortness of breath, cough, wheezing, and pleuritic chest pain, Back: Negative for injury and pain, Skin: Negative for injury, rash, and discoloration, Neuro: Negative for headache, weakness, numbness, tingling, and seizure. 22:30 MS/extremity: Positive for pain, tenderness, of the Right wrist, left wrist. Exam: 22:30 Constitutional: This is a well developed, well nourished patient who is awake, alert, jr8 and in no acute distress. Neck: Trachea midline, no thyromegaly or masses palpated, and no cervical lymphadenopathy. Supple, full range of motion without nuchal rigidity, or vertebral point tenderness. No Meningismus. Cardiovascular: Regular rate and rhythm with a normal S1 and S2. No gallops, murmurs, or rubs. Normal PMI, no JVD. No pulse deficits. Respiratory: Lungs have equal breath sounds bilaterally, clear to auscultation and percussion. No rales, rhonchi or wheezes noted. No increased work of breathing, no retractions or nasal flaring. Back: No spinal tenderness. No costovertebral tenderness. Full range of motion. Skin: Warm, dry with normal turgor. Normal color with no rashes, no lesions, and no evidence of cellulitis. Neuro: Awake and alert, GCS 15, oriented to person, place, time, and situation. Cranial nerves II-XII grossly intact. Motor strength 5/5 in all extremities. Sensory grossly intact. Cerebellar exam normal. Normal gait. 22:30 Musculoskeletal/extremity: Extremities: grossly normal except: noted in the Left wrist: No pain upon palpation, no tenderness no swelling no bruising and no decrease in range of motion upon examination. Pulses 2+ with normal sensation, noted in the Right wrist: Mild tenderness to the right dorsal wrist. Negative Tinel's. Full range of motion intact with no weakness or atrophy noted. Pulses 2+ with grossly intact sensation. Patient does complain of mild tingling to the thenar region of the right hand., Remainder of extremities unremarkable otherwise.. Vital Signs: 21:12 BP 134 / 96; Pulse 69; Resp 18; Temp 98.1(TE); Pulse Ox 96% on R/A; Weight 70.76 kg; ld1 Height 5 ft. 4 in. (162.56 cm); Pain 0/10; 21:12 Body Mass Index 26.78 (70.76 kg, 162.56 cm) ld1 MDM: 21:57 Patient medically screened. jr8 22:24 Data reviewed: vital signs, nurses notes, and as a result, I will discharge patient. jr8 Data interpreted: Pulse oximetry: on room air is 96 %. Interpretation: normal. Counseling: I had a detailed discussion with the patient and/or guardian regarding: the historical points, exam findings, and any diagnostic results supporting the discharge/admit diagnosis, the need for outpatient follow up, a orthopedic surgeon, to return to the emergency department if symptoms worsen or persist or if there are any questions or concerns that arise at home. ED course: Discussed with patient as of right now the wrist pain that she is experiencing seems to be isolated to that. No findings of carpal tunnel or central neurologic findings in the cervical or brachial plexus region noted on physical exam. We will start her on anti-inflammatory have her brace that wrist if it is not better in the next couple weeks to have her follow-up with orthopedics for possible EMG.. Administered Medications: No medications were administered Disposition: 10/09 08:35 Co-signature as Attending Physician, Jimmy Jensen MD I agree with the assessment and christian plan of care. Disposition Summary: 10/08/21 22:26 Discharge Ordered Location: Home jr8 Problem: new jr8 Symptoms: have improved jr8 Condition: Stable jr8 Diagnosis - Paresthesia of skin jr8 - Pain in right wrist jr8 - Pain in left wrist jr8 Followup: jr8 - With: Lex Fuller MD - When: 10 - 14 days - Reason: If symptoms return, Recheck today's complaints, Continuance of care, Re-evaluation by your physician Discharge Instructions: - Discharge Summary Sheet jr8 - Musculoskeletal Pain jr8 - Paresthesia jr8 - Wrist Pain, Adult jr8 Forms: - Medication Reconciliation Form jr8 - Thank You Letter jr8 - Antibiotic Education jr8 - Prescription Opioid Use jr8 Prescriptions: - meloxicam 15 mg Oral tablet - take 1 tablet by ORAL route once daily As needed; 16 tablet; Refills: 0, jr8 Product Selection Permitted Signatures: Jimmy Jensen MD MD cha Roszak, Josh, PA PA jr8 Angela Steen, RN RN ld1
[2021-10-08 22:50] VITALS: BP 134/96; TEMP 98.1; O2SAT 96
== END 2021-10-08 22:34 | disposition home or self-care (01) ==
LOC: ER 21:05
DX: R20.2 Paresthesia of skin (principal); M25.532 Pain in left wrist; M25.531 Pain in right wrist
CPT/HCPCS: 99282

== ENCOUNTER 2022-01-06 10:12 | Emergency (ER) | payer SELFPAY ==
[2022-01-06] MEDS ORDERED: ONDANSETRON 4 MG/2 ML VIAL ONE (10:48)
[2022-01-06] MEDS ORDERED: DIAZEPAM 5 MG TABLET ONE (10:48)
[2022-01-06 10:54] LABS: Absolute Lymphocytes (CBC) 2.2 K/uL (0.7-4.9); Hematocrit 40.1 % (36.0-45.0); Lymphocytes % 29.9 % (15.3-44.8); MPV 7.6 fL (7.6-11.3); RBC Red Blood Cell Count 4.65 M/uL (3.86-4.86)
[2022-01-06 11:14] LABS: ALT/SGPT 33 U/L (12-78); AST/SGOT 14 U/L (15-37); Albumin 4.1 g/dL (3.4-5.0); Alkaline Phosphatase 52 U/L (45-117); BUN Blood Urea Nitrogen 15 mg/dL (7-18); Bicarbonate 24 mmol/L (21-32); Bilirubin Total 0.3 mg/dL (0.2-1.0); Glucose Level 98 mg/dL (74-106); Magnesium 2.2 mg/dL (1.8-2.4); NT PRO-BNP 7 pg/mL (<125); Potassium 3.8 mmol/L (3.5-5.1); Protein, Total 7.5 g/dL (6.4-8.2); Sodium Level 139 mmol/L (136-145)
[2022-01-06 11:20] LABS: Bilirubin Direct < 0.1 mg/dL (0-0.2)
--- NOTE | 2022-01-06 11:41 | RAD REPORT ---
EXAM DESCRIPTION: RAD - Chest Single View - 01/06/2022 11:08 am CLINICAL HISTORY: CHEST PAIN COMPARISON: Chest Single View dated 12/24/2016 FINDINGS: Lines: None. Lungs: No evidence of edema or pneumonia. Pleural: No significant pleural effusions or pneumothorax. Cardiac: The heart size is within normal limits. Bones: No acute fractures. Other: IMPRESSION: No acute cardiopulmonary disease.
[2022-01-06] MEDS ORDERED: KETOROLAC 30 MG/ML INJ ONE (12:14)
[2022-01-06 12:39] LABS: Urine Blood Negative (Negative); Urine Glucose Negative (Negative); Urine Protein Negative (Negative); Urine Specific Gravity 1.015 (1.005-1.030); Urine pH 6.5 (5.0-7.0)
[2022-01-06 12:58] LABS: Barbiturates NEGATIVE (NEGATIVE); Benzodiazepines NEGATIVE (NEGATIVE); Cocaine NEGATIVE (NEGATIVE); METHAMPHETAM NEGATIVE (NEGATIVE); Methadone NEGATIVE (NEGATIVE); Opiates NEGATIVE (NEGATIVE); Phencyclidine NEGATIVE (NEGATIVE); THC Cannibis NEGATIVE (NEGATIVE)
[2022-01-06 13:20] LABS: Urine Specific Gravity/Preg 1.015 (1.005-1.030)
--- NOTE | 2022-01-06 14:20 | ER ---
Nurse's Notes [facility] Name: Kirsten Ghotra Age: 31 yrs Sex: Female : 1990 Arrival Date: 01/06/2022 Time: 10:17 Bed 8 Private MD: Diagnosis: Chest pain, unspecified Presentation: 01/06 10:24 Chief complaint: Patient states: Chest pain, back pain, SOB x 3 days. Coronavirus jl7 screen: At this time, the client does not indicate any symptoms associated with coronavirus-19. Ebola Screen: No symptoms or risks identified at this time. Initial Sepsis Screen: Does the patient meet any 2 criteria? No. Patient's initial sepsis screen is negative. Does the patient have a suspected source of infection? No. Patient's initial sepsis screen is negative. Risk Assessment: Do you want to hurt yourself or someone else? Patient reports no desire to harm self or others. Onset of symptoms was January 04, 2022. Care prior to arrival: None. 10:24 Method Of Arrival: Ambulatory jl7 10:24 Acuity: ANNITA 3 jl7 Triage Assessment: 10:24 General: Appears in no apparent distress. uncomfortable, Behavior is calm, cooperative, jl7 appropriate for age. Pain: Complains of pain in chest Quality of pain is described as sharp. Pain: Complains of pain in thoracic area. Neuro: Level of Consciousness is awake, alert, obeys commands, Oriented to person, place, time, situation. Cardiovascular: Patient's skin is warm and dry. Rhythm is regular. Respiratory: Airway is patent Respiratory effort is even, unlabored, Respiratory pattern is regular, symmetrical. Derm: Skin is pink, warm \T\ dry. 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 - Social history:: Smoking status: Patient denies any tobacco usage or history of. Patient uses street drugs, marijuana. Screenin:23 Abuse screen: Denies threats or abuse. Nutritional screening: No deficits noted. ll1 Tuberculosis screening: No symptoms or risk factors identified. 11:51 Fall Risk IV access (20 points). Total Espinoza Fall Scale indicates No Risk (0-24 pts). jl7 Assessment: 10:30 General: See triage assessment. jl7 11:30 Reassessment: No changes from previously documented assessment. Patient and/or family ll1 updated on plan of care and expected duration. Pain level reassessed. Patient is alert, oriented x 3, equal unlabored respirations, skin warm/dry/pink. 12:30 Reassessment: No changes from previously documented assessment. Patient and/or family ll1 updated on plan of care and expected duration. Pain level reassessed. Patient is alert, oriented x 3, equal unlabored respirations, skin warm/dry/pink. 13:30 Reassessment: No changes from previously documented assessment. Patient and/or family ll1 updated on plan of care and expected duration. Pain level reassessed. Patient is alert, oriented x 3, equal unlabored respirations, skin warm/dry/pink. Pain: Denies pain. Pain does not radiate. Pain began 4 hours ago. Vital Signs: 10:24 BP 139 / 85; Pulse 70; Resp 15; Temp 97.9; Pulse Ox 100% on R/A; Weight 72.57 kg; jl7 Height 5 ft. 4 in. (162.56 cm); Pain 5/10; 11:51 BP 127 / 90; Pulse 61; Resp 15; Pulse Ox 98% ; jl7 13:11 BP 120 / 79; Pulse 58; Resp 15; Pulse Ox 100% on R/A; ll1 14:08 BP 119 / 84; Pulse 56; Resp 16; Pulse Ox 98% on R/A; ll1 10:24 Body Mass Index 27.46 (72.57 kg, 162.56 cm) jl7 ED Course: 10:17 Patient arrived in ED. kz 10:20 Jose Whaley NP is PHCP. pm1 10:20 Bria Jackson MD is Attending Physician. pm1 10:22 Hali Hayes RN is Primary Nurse. ll1 10:22 Arm band placed on Patient placed in an exam room, on a stretcher. ll1 10:25 Triage completed. jl7 10:30 Patient has correct armband on for positive identification. Placed in gown. Bed in low jl7 position. Call light in reach. Side rails up X 1. site monitor on. Pulse ox on. NIBP on. 10:49 Inserted saline lock: 22 gauge in right antecubital area, using aseptic technique. ll1 Blood collected. 10:50 Initial lab(s) drawn, by ED staff, sent to lab. EKG done, by ED staff, reviewed by jl7 Bria Jackson MD. 10:50 Patient maintains SpO2 saturation greater than 95% on room air. jl7 11:08 XRAY Chest (1 view) In Process Unspecified. EDMS 14:29 No provider procedures requiring assistance completed. IV discontinued, intact, ld1 bleeding controlled, No redness/swelling at site. Administered Medications: 10:48 Drug: Zofran (Ondansetron) 4 mg Route: IVP; Site: right antecubital; ll1 11:13 Follow up: Response: No adverse reaction ll1 10:49 Drug: Valium (diazepam) 2 mg Route: PO; ll1 11:12 Follow up: Response: No adverse reaction ll1 12:19 Drug: Ketorolac 30 mg Route: IVP; Site: right antecubital; ll1 13:12 Follow up: Response: No adverse reaction; Pain is decreased; RASS: Alert and Calm (0) [facility] Outcome: 14:19 Discharge ordered by MD. pm1 14:29 Discharged to home ambulatory. ld1 14:29 Condition: stable 14:29 Discharge instructions given to patient, Instructed on discharge instructions, follow up and referral plans. Demonstrated understanding of instructions, follow-up care. 14:30 Patient left the ED. ld1 Signatures: Dispatcher [employer] EDMS Jose Whaley, BJ SPREADING MACHINE OPERATOR pm1 Ana Villanueva RN RN jl7 Hali Hayes RN RN ll1 Angela Steen RN RN ld1 Ana Jiang
--- NOTE | 2022-01-06 14:20 | EDPHYS ---
Physician Documentation [facility] Name: Kirsten Ghotra Age: 31 yrs Sex: Female : 1990 Arrival Date: 01/06/2022 Time: 10:17 Bed 8 Private MD: ED Physician Bria Jackson HPI: 01/06 10:36 This 31 yrs old Female presents to ER via Ambulatory with complaints of Chest pm1 Pain. 10:36 The patient or guardian reports chest pain that is located primarily in the xiphoid pm1 area. The pain radiates to back. Associated signs and symptoms: Pertinent positives: Anxiety. Onset pain and anxiety after smoking marijuana, Pertinent negatives: shortness of breath. The chest pain is described as sharp. Duration: The patient or guardian reports a single episode, that is still ongoing. Modifying factors: the symptoms are aggravated by marijuana. Severity of pain: in the emergency department the pain is unchanged. The patient has not experienced similar symptoms in the past. The patient has not recently seen a physician. 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 - Social history:: Smoking status: Patient denies any tobacco usage or history of. Patient uses street drugs, marijuana. ROS: 10:36 Constitutional: Negative for fever, chills, and weight loss. pm1 10:36 Respiratory: Negative for shortness of breath, cough, wheezing, and pleuritic chest pain, Abdomen/GI: Negative for abdominal pain, nausea, vomiting, diarrhea, and constipation, Back: Negative for injury and pain, MS/Extremity: Negative for injury and deformity, Skin: Negative for injury, rash, and discoloration, Neuro: Negative for headache, weakness, numbness, tingling, and seizure. 10:36 Cardiovascular: Positive for chest pain, Negative for edema, orthopnea, palpitations. 10:36 All other systems are negative. Exam: 10:36 Constitutional: This is a well developed, well nourished patient who is awake, alert, pm1 and in no acute distress. Head/Face: Normocephalic, atraumatic. 10:36 Back: No spinal tenderness. No costovertebral tenderness. Full range of motion. 10:36 Skin: Warm, dry with normal turgor. Normal color with no rashes, no lesions, and no evidence of cellulitis. MS/ Extremity: Pulses equal, no cyanosis. Neurovascular intact. Full, normal range of motion. 10:36 Cardiovascular: Exam negative for acute changes, Rate: normal, Rhythm: regular, Pulses: no pulse deficits are appreciated, Heart sounds: normal, Edema: is not appreciated. 10:36 Respiratory: Exam negative for acute changes, respiratory distress, shortness of breath, Breath sounds: are clear throughout. 10:36 Abdomen/GI: Exam negative for acute changes, Inspection: abdomen appears normal, Palpation: abdomen is soft and non-tender, in all quadrants. 10:36 Neuro: Exam negative for acute changes, Orientation: is normal, Mentation: is normal, Motor: is normal, moves all fours. Vital Signs: 10:24 BP 139 / 85; Pulse 70; Resp 15; Temp 97.9; Pulse Ox 100% on R/A; Weight 72.57 kg; jl7 Height 5 ft. 4 in. (162.56 cm); Pain 5/10; 11:51 BP 127 / 90; Pulse 61; Resp 15; Pulse Ox 98% ; jl7 13:11 BP 120 / 79; Pulse 58; Resp 15; Pulse Ox 100% on R/A; ll1 14:08 BP 119 / 84; Pulse 56; Resp 16; Pulse Ox 98% on R/A; ll1 10:24 Body Mass Index 27.46 (72.57 kg, 162.56 cm) jl7 MDM: 10:34 Patient medically screened. pm1 10:40 Data reviewed: vital signs. Data interpreted: Pulse oximetry: on room air is 100 %. pm1 Interpretation: normal. 14:18 Counseling: I had a detailed discussion with the patient and/or guardian regarding: the pm1 historical points, exam findings, and any diagnostic results supporting the discharge/admit diagnosis, lab results, radiology results, the need for outpatient follow up, to return to the emergency department if symptoms worsen or persist or if there are any questions or concerns that arise at home. 14:20 ED course: Patient reports smoking marijuana prior to chest pain. UDS negative. pm1 Possibly patient smoked synthetic causing her current symptoms of anxiety and chest pain. 01/06 10:34 Order name: Basic Metabolic Panel; Complete Time: 11:22 1 01/06 10:34 Order name: CBC with Diff; Complete Time: 11:22 1 01/06 10:34 Order name: LFT's; Complete Time: 11:22 1 01/06 10:34 Order name: Magnesium; Complete Time: 11:22 01/06 10:34 Order name: NT PRO-BNP; Complete Time: 11:22 1 01/06 10:34 Order name: PT-INR; Complete Time: 11:22 01/06 10:34 Order name: Troponin HS; Complete Time: 11:22 [facility] 01/06 10:34 Order name: XRAY Chest (1 view); Complete Time: 11:44 1 01/06 10:41 Order name: UDS; Complete Time: 14:14 pm1 01/06 12:39 Order name: Urine Dipstick-Ancillary EDMS 01/06 12:39 Order name: Urine --Ancillary (enter results); Complete Time: 14:14 bd 01/06 10:30 Order name: EKG; Complete Time: 10:31 1 01/06 10:30 Order name: EKG - Nurse/Tech; Complete Time: 10:30 [facility] 01/06 10:34 Order name: IV Saline Lock; Complete Time: 10:34 1 01/06 10:34 Order name: Labs collected and sent; Complete Time: 10:34 [facility] 01/06 10:41 Order name: Urine Dipstick-Ancillary (obtain specimen); Complete Time: 13:11 pm1 01/06 10:41 Order name: Urine Test (obtain specimen); Complete Time: 13:11 pm1 Administered Medications: 10:48 Drug: Zofran (Ondansetron) 4 mg Route: IVP; Site: right antecubital; ll1 11:13 Follow up: Response: No adverse reaction ll1 10:49 Drug: Valium (diazepam) 2 mg Route: PO; ll1 11:12 Follow up: Response: No adverse reaction ll1 12:19 Drug: Ketorolac 30 mg Route: IVP; Site: right antecubital; ll1 13:12 Follow up: Response: No adverse reaction; Pain is decreased; RASS: Alert and Calm (0) ll1 Disposition Summary: 01/06/22 14:19 Discharge Ordered Location: Home pm1 Problem: new pm1 Symptoms: have improved pm1 Condition: Stable pm1 Diagnosis - Chest pain, unspecified pm1 Followup: pm1 - With: Emergency Department - When: As needed - Reason: Worsening of condition Followup: pm1 - With: Private Physician - When: 2 - 3 days - Reason: Recheck today's complaints, Continuance of care, Re-evaluation by your physician Discharge Instructions: - Discharge Summary Sheet pm1 - Nonspecific Chest Pain, Adult pm1 Forms: - Medication Reconciliation Form pm1 - Thank You Letter pm1 - Antibiotic Education pm1 - Prescription Opioid Use pm1 Signatures: Dispatcher [employer] EDJose Johnson NP WOMEN DESIGNER pm1 Ana Villanueva RN RN jl7 Hali Hayes RN RN ll1
[2022-01-06 15:03] VITALS: TEMP 97.9
[2022-01-06 15:06] VITALS: BP 119/84; O2SAT 98
== END 2022-01-06 14:30 | disposition home or self-care (01) ==
LOC: ER 10:12
DX: R07.9 Chest pain, unspecified (principal)
CPT/HCPCS: 36415; 71045; 80048; 80076; 80307; 81003; 81025; 83735; 83880; 84484; 85025; 85610; 93005; 96374; 96375; 99285; J2405

== ENCOUNTER 2022-02-03 19:09 | Emergency (ER) | payer SELFPAY ==
[2022-02-03] MEDS ORDERED: NA CHLORIDE 0.9% 500 ML ONE (19:51)
[2022-02-03] MEDS ORDERED: ASPIRIN 81 MG CHEWABLE TABLET ONE (19:51)
[2022-02-03 20:15] LABS: Absolute Lymphocytes (CBC) 2.3 K/uL (0.7-4.9); Hematocrit 37.9 % (36.0-45.0); Lymphocytes % 31.2 % (15.3-44.8); MPV 7.5 fL (7.6-11.3); RBC Red Blood Cell Count 4.44 M/uL (3.86-4.86)
--- NOTE | 2022-02-03 20:35 | RAD REPORT ---
EXAM DESCRIPTION: Michelle Osman And Yuly (2 Views)02/03/2022 8:18 pm CLINICAL HISTORY: Cough COMPARISON: January 06, 2022 FINDINGS: The lungs appear clear of acute infiltrate. The heart is normal size IMPRESSION: No acute abnormalities displayed
[2022-02-03 20:38] LABS: ALT/SGPT 44 U/L (12-78); AST/SGOT 16 U/L (15-37); Albumin 4.1 g/dL (3.4-5.0); Alkaline Phosphatase 52 U/L (45-117); BUN Blood Urea Nitrogen 14 mg/dL (7-18); Bicarbonate 27 mmol/L (21-32); Bilirubin Total 0.3 mg/dL (0.2-1.0); Glucose Level 86 mg/dL (74-106); Magnesium 2.2 mg/dL (1.8-2.4); Potassium 3.6 mmol/L (3.5-5.1); Protein, Total 7.4 g/dL (6.4-8.2); Sodium Level 139 mmol/L (136-145)
[2022-02-03 20:46] LABS: Troponin High Sensitivity < 3.0 pg/mL (<58.9)
--- NOTE | 2022-02-03 20:50 | ER ---
Nurse's Notes [facility] Name: Kirsten Ghotra Age: 31 yrs Sex: Female : 1990 Arrival Date: 02/03/2022 Time: 19:12 Bed 9 Private MD: Diagnosis: Palpitations;Cough Presentation: 02/03 19:15 Chief complaint: Patient states: feeling sick for the past week. sore throat, cough and lg3 headache. feels like it has moved down into lungs. coughing so much causing nausea and vomiting. now starting to feel palpitations. . Coronavirus screen: Client denies travel out of the [place] in the last 14 days. At this time, the client does not indicate any symptoms associated with coronavirus-19. Ebola Screen: No symptoms or risks identified at this time. Initial Sepsis Screen: Does the patient meet any 2 criteria? No. Patient's initial sepsis screen is negative. Does the patient have a suspected source of infection? No. Patient's initial sepsis screen is negative. Risk Assessment: Do you want to hurt yourself or someone else? Patient reports no desire to harm self or others. Onset of symptoms was January 24, 2022. 19:15 Method Of Arrival: Ambulatory lg3 19:15 Acuity: ANNITA 3 lg3 Triage Assessment: 19:19 General: Appears in no apparent distress. comfortable, Behavior is calm, cooperative, lg3 anxious. Pain: Complains of pain in chest Quality of pain is described as pressure. EENT: No deficits noted. No signs and/or symptoms were reported regarding the EENT system. Neuro: No deficits noted. Level of Consciousness is awake, alert, obeys commands, Oriented to person, place, time, situation. Cardiovascular: No deficits noted. Reports palpitations, Capillary refill < 3 seconds Clubbing of nail beds is absent JVD is absent Patient's skin is warm and dry. Respiratory: No deficits noted. Reports cough that is dry, persistent. GI: No deficits noted. No signs and/or symptoms were reported involving the gastrointestinal system. Abdomen is round non-distended. : No deficits noted. No signs and/or symptoms were reported regarding the genitourinary system. Derm: No deficits noted. No signs and/or symptoms reported regarding the dermatologic system. Skin is intact, is healthy with good turgor, Skin is dry. Musculoskeletal: No deficits noted. No signs and/or symptoms reported regarding the musculoskeletal system. Circulation, motion, and sensation intact. Range of motion: intact in all extremities. 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 - Social history:: Smoking status: Patient/guardian denies using tobacco, Patient uses alcohol, occasionally. - Hospitalizations: : No recent hospitalization is reported. Screenin:22 Abuse screen: Denies threats or abuse. Denies injuries from another. Nutritional lg3 screening: No deficits noted. Tuberculosis screening: No symptoms or risk factors identified. Fall Risk None identified. Vital Signs: 19:15 BP 138 / 89; Pulse 68; Resp 17 S; Temp 97.5(TE); Pulse Ox 100% on R/A; Weight 72.57 kg lg3 (R); Height 5 ft. 4 in. (162.56 cm) (R); Pain 0/10; 19:57 BP 142 / 88; Pulse 79; Resp 18; Pulse Ox 99% on R/A; ab2 21:27 BP 136 / 79; Pulse 76; Resp 17; Pulse Ox 98% on R/A; ab2 19:15 Body Mass Index 27.46 (72.57 kg, 162.56 cm) lg3 ED Course: 19:12 Patient arrived in ED. kc5 19:19 Triage completed. lg3 19:19 Arm band placed on right wrist. lg3 19:23 Phong Guevara is Primary Nurse. ab2 19:30 Jimmy Jensen MD is Attending Physician. christian 19:57 Patient has correct armband on for positive identification. Bed in low position. Call ab2 light in reach. Side rails up X2. 19:58 Troponin High Sensitivity Sent. ab2 19:58 Magnesium Sent. ab2 19:58 TSH Sent. ab2 19:58 D-Dimer Sent. ab2 20:19 Chest Pa And Lat (2 Views) XRAY In Process Unspecified. EDMS 20:49 Stuart Hanks MD is Referral Physician. [facility] 21:28 No provider procedures requiring assistance completed. IV discontinued, intact, ab2 bleeding controlled, No redness/swelling at site. Pressure dressing applied. Administered Medications: 19:58 Drug: NS 0.9% 500 ml Route: IV; Rate: bolus; Site: right antecubital; ab2 21:27 Follow up: Response: No adverse reaction; IV Status: Completed infusion ab2 19:58 Drug: Aspirin Chewable Tablet 81 mg Route: PO; ab2 21:27 Follow up: Response: No adverse reaction ab2 Outcome: 20:49 Discharge ordered by . christian 21:28 Discharged to home ambulatory. ab2 21:28 Condition: good 21:28 Discharge instructions given to patient, Instructed on discharge instructions, follow up and referral plans. Demonstrated understanding of instructions, follow-up care, medications, Prescriptions given X 2. 21:28 Patient left the ED. ab2 Signatures: Dispatcher [employer] EDSC Jimmy Jensen MD MD cha Gibson, Lacie, SCARLETT RN lg3 Cathy Hanson kc5 Phong Guevara ab2
--- NOTE | 2022-02-03 20:50 | EDPHYS ---
Physician Documentation [facility] Name: Kirsten Ghotra Age: 31 yrs Sex: Female : 1990 Arrival Date: 02/03/2022 Time: 19:12 Bed 9 Private MD: ED Physician Jimmy Jensen HPI: 02/03 20:16 This 31 yrs old Female presents to ER via Ambulatory with complaints of christian Palpitations. 20:16 The patient presents with a history of irregular heart beat, heart skipping beats. christian Context: The symptoms occur with light activity. Onset: The symptoms/episode began/occurred 3 day(s) ago. Duration: The patient or guardian reports multiple episodes, with no pattern. Modifying factors: The symptoms are aggravated by nothing. The symptoms are alleviated by lying down. Associated signs and symptoms: Pertinent positives:. Associated signs and symptoms: Pertinent positives: cough. Severity of symptoms: At their worst the symptoms were mild in the emergency department the symptoms have improved. The patient has experienced similar episodes in the past, a few times. 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 - Social history:: Smoking status: Patient/guardian denies using tobacco, Patient uses alcohol, occasionally. - Hospitalizations: : No recent hospitalization is reported. ROS: 20:16 Constitutional: Negative for fever, chills, and weight loss, Eyes: Negative for injury, christian pain, redness, and discharge, ENT: Negative for injury, pain, and discharge, Neck: Negative for injury, pain, and swelling, Abdomen/GI: Negative for abdominal pain, nausea, vomiting, diarrhea, and constipation, Back: Negative for injury and pain, : Negative for injury, bleeding, discharge, and swelling, MS/Extremity: Negative for injury and deformity, Skin: Negative for injury, rash, and discoloration, Neuro: Negative for headache, weakness, numbness, tingling, and seizure, Psych: Negative for depression, anxiety, suicide ideation, homicidal ideation, and hallucinations, Allergy/Immunology: Negative for hives, rash, and allergies, Endocrine: Negative for neck swelling, polydipsia, polyuria, polyphagia, and marked weight changes, Hematologic/Lymphatic: Negative for swollen nodes, abnormal bleeding, and unusual bruising. 20:16 Cardiovascular: Positive for palpitations. 20:16 Respiratory: Positive for cough, with no reported sputum. Exam: 20:16 Constitutional: This is a well developed, well nourished patient who is awake, alert, christian and in no acute distress. Head/Face: Normocephalic, atraumatic. Eyes: Pupils equal round and reactive to light, extra-ocular motions intact. Lids and lashes normal. Conjunctiva and sclera are non-icteric and not injected. Cornea within normal limits. Periorbital areas with no swelling, redness, or edema. ENT: Nares patent. No nasal discharge, no septal abnormalities noted. Tympanic membranes are normal and external auditory canals are clear. Oropharynx with no redness, swelling, or masses, exudates, or evidence of obstruction, uvula midline. Mucous membranes moist. Neck: Trachea midline, no thyromegaly or masses palpated, and no cervical lymphadenopathy. Supple, full range of motion without nuchal rigidity, or vertebral point tenderness. No Meningismus. Chest/axilla: Normal chest wall appearance and motion. Nontender with no deformity. No lesions are appreciated. Cardiovascular: Regular rate and rhythm with a normal S1 and S2. No gallops, murmurs, or rubs. Normal PMI, no JVD. No pulse deficits. Respiratory: Lungs have equal breath sounds bilaterally, clear to auscultation and percussion. No rales, rhonchi or wheezes noted. No increased work of breathing, no retractions or nasal flaring. Abdomen/GI: Soft, non-tender, with normal bowel sounds. No distension or tympany. No guarding or rebound. No evidence of tenderness throughout. Back: No spinal tenderness. No costovertebral tenderness. Full range of motion. Skin: Warm, dry with normal turgor. Normal color with no rashes, no lesions, and no evidence of cellulitis. MS/ Extremity: Pulses equal, no cyanosis. Neurovascular intact. Full, normal range of motion. Neuro: Awake and alert, GCS 15, oriented to person, place, time, and situation. Cranial nerves II-XII grossly intact. Motor strength 5/5 in all extremities. Sensory grossly intact. Cerebellar exam normal. Normal gait. Psych: Awake, alert, with orientation to person, place and time. Behavior, mood, and affect are within normal limits. 20:16 Musculoskeletal/extremity: DVT Exam: No signs of deep vein thrombosis. no pain, no swelling, no tenderness, negative Homans' sign noted on exam, no appreciated bluish discoloration, no erythema, no increased warmth. 20:25 ECG was reviewed by the Attending Physician. christian Vital Signs: 19:15 BP 138 / 89; Pulse 68; Resp 17 S; Temp 97.5(TE); Pulse Ox 100% on R/A; Weight 72.57 kg lg3 (R); Height 5 ft. 4 in. (162.56 cm) (R); Pain 0/10; 19:57 BP 142 / 88; Pulse 79; Resp 18; Pulse Ox 99% on R/A; ab2 21:27 BP 136 / 79; Pulse 76; Resp 17; Pulse Ox 98% on R/A; ab2 19:15 Body Mass Index 27.46 (72.57 kg, 162.56 cm) lg3 MDM: 19:30 Patient medically screened. christian 20:18 RADHA Risk Score: Total Score = 0. Differential diagnosis: arrythmia, dehydration. Data christian reviewed: vital signs, nurses notes, lab test result(s), EKG, radiologic studies, plain films. 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 Test interpretation: by ED physician or midlevel provider: ECG, plain radiologic studies. Counseling: I had a detailed discussion with the patient and/or guardian regarding: the historical points, exam findings, and any diagnostic results supporting the discharge/admit diagnosis, lab results, radiology results, the need for outpatient follow up, for definitive care, a sample body builder, a family practitioner. 02/03 19:32 Order name: CBC with Diff; Complete Time: 20:25 [facility] 02/03 19:32 Order name: Comprehensive Metabolic Panel; Complete Time: 20:48 [facility] 02/03 19:32 Order name: D-Dimer [facility] 02/03 19: Order name: Magnesium; Complete Time: 20:48 [facility] 02/03 19:32 Order name: Troponin High Sensitivity; Complete Time: 20:48 [facility] 02/03 19:32 Order name: EKG; Complete Time: 19:33 [facility] 02/03 19:32 Order name: EKG - Nurse/Tech; Complete Time: 19:58 [facility] 02/03 19:32 Order name: TSH; Complete Time: 20:48 [facility] 02/03 20:09 Order name: Chest Pa And Lat (2 Views) XRAY; Complete Time: 20:48 [facility] EC:25 Rate is 61 beats/min. Rhythm is regular. QRS [place] is Normal. PA interval is normal. QRS christian interval is normal. QT interval is normal. No Q waves. T waves are Normal. No ST changes noted. Clinical impression: NSR w/ Non-specific ST/T Changes and No evidence of ischemia. Interpreted by me. Reviewed by me. Administered Medications: 19:58 Drug: NS 0.9% 500 ml Route: IV; Rate: bolus; Site: right antecubital; ab2 21:27 Follow up: Response: No adverse reaction; IV Status: Completed infusion ab2 19:58 Drug: Aspirin Chewable Tablet 81 mg Route: PO; ab2 21:27 Follow up: Response: No adverse reaction ab2 Disposition Summary: 02/03/22 20:49 Discharge Ordered Location: Home christian Problem: new christian Symptoms: have improved christian Condition: Stable christian Diagnosis - Palpitations christian - Cough christian Followup: christian - With: Private Physician - When: 2 - 3 days - Reason: Recheck today's complaints, Continuance of care, Re-evaluation by your physician Followup: christian - With: - When: 2 - 3 days - Reason: Recheck today's complaints, Continuance of care, Re-evaluation by your physician Discharge Instructions: - Discharge Summary Sheet christian - Palpitations christian - Cool Mist Vaporizer christian - Cough, Adult, [id number] christian - Aspirin and Your Heart christian - Palpitations, [id number] christian - Cough, Adult christian Forms: - Medication Reconciliation Form christian - Thank You Letter christian - Antibiotic Education christian - Prescription Opioid Use christian Prescriptions: - Zithromax Z-Martell 250 mg Oral Tablet - take 1 tablet by ORAL route as directed for 5 days Day 1 - take two (2) tablets christian one time. Day 2, 3, 4 , 5 take one (1) tablet once daily.; 6 tablet; Refills: 0, Product Selection Permitted - Bromfed DM 2-30-10 mg/5 mL Oral syrup - take 7.5 milliliter by ORAL route every 4 hours; 160 milliliter; Refills: 0, jr8 Product Selection Permitted Signatures: Dispatcher [employer] Jimmy Vanegas MD MD cha Gibson, Lacie, RN RN lg3 Phong Guevara
[2022-02-03 22:25] VITALS: TEMP 97.5
[2022-02-03 22:29] VITALS: BP 136/79; O2SAT 98
--- NOTE | 2022-02-08 11:28 | EKG ---
Test Date: 2022-02-03 Test Time: 19:28:43 As400 Developer: MEASUREMENT RESULTS: Intervals: Rate: 61 MA: 176 QRSD: 96 QT: 398 QTc: 400 [place]: P: 49 MA: 176 QRS: 89 T: 49 INTERPRETIVE STATEMENTS: Normal sinus rhythm Nonspecific T wave abnormality Abnormal ECG Compared to ECG 01/06/2022 10:27:01 T-wave abnormality now present Sinus arrhythmia no longer present Electronically Signed On 02-08-22 11:14:32 CDT by Stuart Hanks
== END 2022-02-03 21:28 | disposition home or self-care (01) ==
LOC: ER 19:09
DX: R00.2 Palpitations (principal); R05.9 Cough, unspecified
CPT/HCPCS: 36415; 71046; 80053; 83735; 84443; 84484; 85025; 85379; 93005; 96360; 99284; J7040

== ENCOUNTER 2022-04-21 14:36 | Emergency (ER) | payer SELFPAY ==
--- OUTSIDE RECORDS SUMMARY | 2022-04-21 14:39 | XMS REPORT | Continuity of Care Document ---
:1990 Author Organization [facility] t Address [address] [place] [address] [address] [place] [address] Care Team Providers Name Role Phone JAMES Attending Clinician Unavailable Problems This patient has no known problems. Allergies, Adverse Reactions, Alerts This patient has no known allergies or adverse reactions. Medications This patient has no known medications. Procedures This patient has no known procedures. Encounters Start End Encounter Admission Attending Care Care Encounter Source Date/Time Date/Time Type Type Clinicians Facility Department ID 2022-04-13 2022-04-13 Outpatient [facility] [id number] 00:00:00 00:00:00 [facility] [address] Results This patient has no known results.
--- NOTE | 2022-04-21 15:22 | EDPHYS ---
Physician Documentation [facility] Name: Kirsten Ghotra Age: 31 yrs Sex: Female : 1990 Arrival Date: 04/21/2022 Time: 14:40 Bed 9 Private MD: ED Physician Chris Be HPI: 04/21 15:21 This 31 yrs old Female presents to ER via Ambulatory with complaints of Tick pm1 Bite. 15:21 The patient was bitten on the left leg, by tick, outdoors. Onset: The symptoms/episode pm1 began/occurred 3 week(s) ago. Secondary to the bite the patient reports swelling. Associated signs and symptoms: Pertinent negatives: fever. Severity of symptoms: in the emergency department the symptoms are actually worse. The patient has not experienced similar symptoms in the past. The patient has not recently seen a physician. Historical: - Allergies: 14:45 material bandaids; tw2 - Home Meds: 14:45 None [Active]; tw2 - PMHx: 14:45 None; tw2 - PSHx: 14:45 None; tw2 - Immunization history:: Client reports having NOT received the Covid vaccine. - Social history:: Smoking status: Patient reports use of chewing tobacco. Patient/guardian denies using tobacco, Stopped _ months ago 1. ROS: 15:21 Constitutional: Negative for fever, chills, and weight loss, Cardiovascular: Negative pm1 for chest pain, palpitations, and edema, Respiratory: Negative for shortness of breath, cough, wheezing, and pleuritic chest pain, MS/Extremity: Negative for injury and deformity. 15:21 Neuro: Negative for headache, weakness, numbness, tingling, and seizure. 15:21 Skin: Positive for rash, of the medial aspect of left calf. 15:21 All other systems are negative. Exam: 15:21 Constitutional: This is a well developed, well nourished patient who is awake, alert, pm1 and in no acute distress. Head/Face: Normocephalic, atraumatic. 15:21 Cardiovascular: Exam negative for acute changes, Rate: normal, Rhythm: regular, Pulses: no pulse deficits are appreciated. 15:21 Respiratory: Exam negative for acute changes, respiratory distress, shortness of breath. 15:21 Skin: Appearance: normal except for affected area, abscess, not appreciated, cellulitis, is not appreciated, lesion(s), probable papule(s) noted, located on the medial aspect of left calf. Vital Signs: 14:44 BP 129 / 83; Pulse 72; Resp 17; Temp 97.7(TE); Pulse Ox 99% on R/A; tw2 14:55 BP 126 / 81; Pulse 74; Resp 18; Pulse Ox 100% on R/A; ld1 MDM: 15:07 Patient medically screened. pm1 15:21 Data reviewed: vital signs. Data interpreted: Pulse oximetry: on room air is 100 %. pm1 Interpretation: normal. Counseling: I had a detailed discussion with the patient and/or guardian regarding: the historical points, exam findings, and any diagnostic results supporting the discharge/admit diagnosis, the need for outpatient follow up, a family practitioner. 15:21 Differential diagnosis: cellulitis, Abscess, Lyme disease. pm1 Administered Medications: No medications were administered Disposition: 15:57 Co-signature as Attending Physician, Chris Be MD I agree with the assessment and kdr plan of care. Disposition Summary: 04/21/22 15:22 Discharge Ordered Location: Home pm1 Problem: new pm1 Symptoms: have improved pm1 Condition: Stable pm1 Diagnosis - Insect bite (nonvenomous), left lower leg pm1 Followup: pm1 - With: Emergency Department - When: As needed - Reason: Worsening of condition Followup: pm1 - With: Private Physician - When: 2 - 3 days - Reason: Recheck today's complaints, Continuance of care, Re-evaluation by your physician Discharge Instructions: - Discharge Summary Sheet pm1 - Insect Bite, Adult pm1 - How to Protect Your Child From Insect Bites pm1 Forms: - Medication Reconciliation Form pm1 - Thank You Letter pm1 - Antibiotic Education pm1 - Prescription Opioid Use pm1 Prescriptions: - Bactrim DS 800-160 mg Oral Tablet - take 1 tablet by ORAL route every 12 hours for 10 days; 20 tablet; Refills: 0, pm1 Product Selection Permitted Signatures: Chris Be MD MD kdr Marinas, Patrick, NP LADLE PULLER pm1 Basia Alba RN RN tw2
--- NOTE | 2022-04-21 15:22 | ER ---
Nurse's Notes [facility] Name: Kirsten Ghotra Age: 31 yrs Sex: Female : 1990 Arrival Date: 04/21/2022 Time: 14:40 Bed 9 Private MD: Diagnosis: Insect bite (nonvenomous), left lower leg Presentation: 04/21 14:44 Chief complaint: Patient states: i got bit by a tick 3 weeks ago. it was buried in tw2 there and i thought i got everything out. it started turning red yesterday. i wanted to get some bloodwork done. Coronavirus screen: At this time, the client does not indicate any symptoms associated with coronavirus-19. Ebola Screen: Patient denies travel to an Ebola-affected area in the 21 days before illness onset. Initial Sepsis Screen: Does the patient meet any 2 criteria? No. Patient's initial sepsis screen is negative. Does the patient have a suspected source of infection? No. Patient's initial sepsis screen is negative. Risk Assessment: Do you want to hurt yourself or someone else? Patient reports no desire to harm self or others. Onset of symptoms was April 21, 2022. 14:44 Method Of Arrival: Ambulatory tw2 14:44 Acuity: ANNITA 3 tw2 14:45 Chief complaint: Patient states: also i have been having anxiety and chest pain. tw2 Triage Assessment: 14:45 General: Appears in no apparent distress. well groomed, Behavior is calm, cooperative, tw2 appropriate for age. Pain: Denies pain. Derm: Reports tick bit and swelling to LEFT calf. Historical: - Allergies: 14:45 material bandaids; tw2 - Home Meds: 14:45 None [Active]; tw2 - PMHx: 14:45 None; tw2 - PSHx: 14:45 None; tw2 - Immunization history:: Client reports having NOT received the Covid vaccine. - Social history:: Smoking status: Patient reports use of chewing tobacco. Patient/guardian denies using tobacco, Stopped _ months ago 1. Screenin:55 Abuse screen: Denies threats or abuse. Denies injuries from another. Nutritional ld1 screening: No deficits noted. Tuberculosis screening: No symptoms or risk factors identified. Fall Risk None identified. Assessment: 14:55 General: Appears in no apparent distress. comfortable, Behavior is calm, cooperative, ld1 appropriate for age. Pain: Complains of pain in left calf Pain does not radiate. Pain currently is 6 out of 10 on a pain scale. Neuro: Level of Consciousness is awake, alert, obeys commands, Oriented to person, place, time, situation. Cardiovascular: Capillary refill < 3 seconds Patient's skin is warm and dry. Respiratory: Airway is patent Respiratory effort is even, unlabored. GI: Abdomen is flat, non-distended. : No signs and/or symptoms were reported regarding the genitourinary system. EENT: No signs and/or symptoms were reported regarding the EENT system. Derm: Rash noted that is on left leg. Musculoskeletal: No signs and/or symptoms reported regarding the musculoskeletal system. Vital Signs: 14:44 BP 129 / 83; Pulse 72; Resp 17; Temp 97.7(TE); Pulse Ox 99% on R/A; tw2 14:55 BP 126 / 81; Pulse 74; Resp 18; Pulse Ox 100% on R/A; ld1 ED Course: 14:40 Patient arrived in ED. rg4 14:45 Triage completed. tw2 14:46 Arm band placed on. tw2 14:50 Jose Whaley NP is PHCP. pm1 14:50 Chris Be MD is Attending Physician. pm1 14:54 Angela Steen, SCARLETT is Primary Nurse. ld1 14:55 Patient has correct armband on for positive identification. Placed in gown. Bed in low ld1 position. Call light in reach. Side rails up X2. Pulse ox on. NIBP on. Door closed. Noise minimized. Warm blanket given. 14:55 No provider procedures requiring assistance completed. ld1 15:40 Patient did not have IV access during this emergency room visit. ld1 Administered Medications: No medications were administered Medication: 14:55 VIS not applicable for this client. ld1 Outcome: 15:22 Discharge ordered by . pm1 15:40 Discharged to home ambulatory. ld1 15:40 Condition: stable 15:40 Discharge instructions given to patient, Instructed on discharge instructions, follow up and referral plans. medication usage, Demonstrated understanding of instructions, follow-up care, medications, Prescriptions given X 1. 15:41 Patient left the ED. ld1 Signatures: Jose Whaley SALES CLERK SUPERVISOR SALES CLERK SUPERVISOR pm1 Basia Alba, RN RN tw2 Magy Omalley rg4 Angela Steen, RN RN ld1
[2022-04-21 15:55] VITALS: TEMP 97.7
[2022-04-21 15:59] VITALS: BP 126/81; O2SAT 100
== END 2022-04-21 15:41 | disposition home or self-care (01) ==
LOC: ER 14:36
DX: S80.862A Insect bite (nonvenomous), left lower leg, initial encounter (principal)
CPT/HCPCS: 99283

== ENCOUNTER 2022-05-05 00:41 | Emergency (ER) | payer SELFPAY ==
[2022-05-05 02:09] LABS: Absolute Lymphocytes (CBC) 2.5 K/uL (0.7-4.9); Hematocrit 37.8 % (36.0-45.0); Lymphocytes % 25.4 % (15.3-44.8); MPV 7.8 fL (7.6-11.3); RBC Red Blood Cell Count 4.45 M/uL (3.86-4.86)
[2022-05-05 02:37] LABS: BUN Blood Urea Nitrogen 18 mg/dL (7-18); Bicarbonate 25 mmol/L (21-32); Glomerular Filtration Rate 123 ml/min (=/>90); Glucose Level 98 mg/dL (74-106); NT PRO-BNP 7 pg/mL (<125); Potassium 3.6 mmol/L (3.5-5.1); Sodium Level 137 mmol/L (136-145)
[2022-05-05 02:40] LABS: Troponin High Sensitivity < 3.0 pg/mL (<58.9)
--- NOTE | 2022-05-05 03:28 | EDPHYS ---
Physician Documentation [facility] Name: Kirsten Ghotra Age: 31 yrs Sex: Female : 1990 Arrival Date: 05/05/2022 Time: 00:44 Bed 16 Private MD: ED Physician Chris Be CHAIN TENDER: 05/05 01:12 LMP 04/2022 kd3 Historical: - Allergies: 01:12 No Known Allergies; kd3 - Home Meds: 01:12 None [Active]; kd3 - Immunization history:: Adult Immunizations up to date. - Social history:: Smoking status: Patient/guardian denies using tobacco. Vital Signs: 01:17 BP 131 / 83; Pulse 62; Resp 18; Temp 98.2; Pulse Ox 100% ; Weight 65.77 kg; Height 5 kd3 ft. 4 in. (162.56 cm); Pain 3/10; 03:17 BP 143 / 92; Pulse 68; Resp 18; Pulse Ox 100% on R/A; Pain 0/10; ke1 03:51 BP 132 / 90; Pulse 66; Resp 18; Pulse Ox 100% on R/A; ke1 01:17 Body Mass Index 24.89 (65.77 kg, 162.56 cm) kd3 MDM: 03:27 Patient medically screened. [facility] 05/05 01:31 Order name: Basic Metabolic Panel; Complete Time: 02:44 [facility] 05/05 01:31 Order name: CBC with Diff; Complete Time: 02:44 [facility] 05/05 01:31 Order name: NT PRO-BNP; Complete Time: 02:44 [facility] 05/05 01:31 Order name: Troponin HS; Complete Time: 02:44 [facility] 05/05 01:31 Order name: XRAY Chest (1 view) [facility] 05/05 01:31 Order name: EKG; Complete Time: 01:31 [facility] 05/05 01:31 Order name: Cardiac monitoring; Complete Time: :59 [facility] 05/05 01:31 Order name: EKG - Nurse/Tech; Complete Time: 01:59 [facility] 05/05 01:31 Order name: IV Saline Lock; Complete Time: 01:59 [facility] 05/05 01:31 Order name: Labs collected and sent; Complete Time: :58 [facility] 05/05 01:31 Order name: O2 Per Protocol; Complete Time: 01:58 kdr 05/05 01:31 Order name: O2 Sat Monitoring; Complete Time: :58 kdr Administered Medications: No medications were administered Disposition Summary: 05/05/22 03:27 Discharge Ordered Location: Home kdr Problem: new kdr Symptoms: are resolved kdr Condition: Stable kdr Diagnosis - Chest pain, unspecified kdr - Palpitations kdr Followup: kdr - With: Private Physician - When: 2 - 3 days - Reason: If symptoms return, Further diagnostic work-up, Recheck today's complaints, Continuance of care, Re-evaluation by your physician Discharge Instructions: - Discharge Summary Sheet kdr - Nonspecific Chest Pain, Adult, [id number] kdr - Palpitations, [id number] kdr Forms: - Medication Reconciliation Form kdr - Thank You Letter kdr Prescriptions: - Pepcid 20 mg Oral Tablet - take 1 tablet by ORAL route once daily for 10 days; 10 tablet; Refills: 0, kdr Product Selection Permitted Signatures: Dispatcher [employer] EDMS Chris Be MD MD kdr Amelia Rader RN RN kd3 Corrections: (The following items were deleted from the chart) 01:12 01:12 Allergies: material bandaids [Inactive]; kd3 kd3
--- NOTE | 2022-05-05 03:28 | ER ---
Nurse's Notes [facility] Name: Kirsten Ghotra Age: 31 yrs Sex: Female : 1990 Arrival Date: 05/05/2022 Time: 00:44 Bed 16 Private MD: Diagnosis: Chest pain, unspecified;Palpitations Presentation: 05/05 01:08 Chief complaint: Patient states: i have a sharp pain in my chest. im not sure if it my kd3 anxiety but it isn't going away. i had test done and was told that I am at high risk for COPD. i had covid before and since then i haven't felt like i have been breathing the same and i have heart palpitations with it. Coronavirus screen: Vaccine status: Patient reports being unvaccinated. Ebola Screen: No symptoms or risks identified at this time. Initial Sepsis Screen: Does the patient meet any 2 criteria? No. Patient's initial sepsis screen is negative. Does the patient have a suspected source of infection? No. Patient's initial sepsis screen is negative. Risk Assessment: Do you want to hurt yourself or someone else? Patient reports no desire to harm self or others. Onset of symptoms is unknown. 01:08 Method Of Arrival: Ambulatory kd3 01:08 Acuity: ANNITA 3 kd3 Triage Assessment: 01:12 General: Appears in no apparent distress. Behavior is calm, cooperative. Pain: kd3 Complains of pain in anterior aspect of left upper chest. 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 - Social history:: Smoking status: Patient/guardian denies using tobacco. Screenin:04 Abuse screen: Denies threats or abuse. Nutritional screening: No deficits noted. ke1 Tuberculosis screening: No symptoms or risk factors identified. Fall Risk None identified. Assessment: 01:59 Pain: Complains of pain in chest Pain radiates to back and left shoulder Pain currently ke1 is 3 out of 10 on a pain scale. at worst was 7 out of 10 on a pain scale. level that patient reports is acceptable is 5 out of 10 on a pain scale. Neuro: Level of Consciousness is awake, alert, Oriented to person, place, time, situation. Cardiovascular: Reports chest pain, Heart tones S1 S2 Capillary refill < 3 seconds JVD is absent Patient's skin is warm and dry. Rhythm is sinus rhythm. Respiratory: Respiratory effort is even, unlabored, Respiratory pattern is regular, symmetrical, Breath sounds are clear. GI: Abdomen is non-distended. 02:05 Pain: Pain began 2 hours ago. ke1 02:49 Reassessment: Patient appears in no apparent distress at this time. Patient is alert, ke1 oriented x 3, equal unlabored respirations, skin warm/dry/pink. Patient states symptoms have improved. Vital Signs: 01:17 BP 131 / 83; Pulse 62; Resp 18; Temp 98.2; Pulse Ox 100% ; Weight 65.77 kg; Height 5 kd3 ft. 4 in. (162.56 cm); Pain 3/10; 03:17 BP 143 / 92; Pulse 68; Resp 18; Pulse Ox 100% on R/A; Pain 0/10; ke1 03:51 BP 132 / 90; Pulse 66; Resp 18; Pulse Ox 100% on R/A; ke1 01:17 Body Mass Index 24.89 (65.77 kg, 162.56 cm) kd3 ED Course: 00:44 Patient arrived in ED. bp1 01:12 Triage completed. kd3 01:12 Arm band placed on left wrist. kd3 01:30 Chris Be MD is Attending Physician. kdr 01:37 Yisel Gao, SCARLETT is Primary Nurse. ke1 01:48 XRAY Chest (1 view) In Process Unspecified. EDMS 01:58 Inserted saline lock: 20 gauge in right antecubital area, using aseptic technique. ke1 02:04 Bed in low position. Client placed on continuous cardiac and pulse oximetry monitoring. ke1 NIBP monitoring applied. ekg monitor on. Pulse ox on. NIBP on. 02:04 No provider procedures requiring assistance completed. Patient maintains SpO2 ke1 saturation greater than 95% on room air. 03:52 IV discontinued. ke1 Administered Medications: No medications were administered Medication: 03:51 VIS not applicable for this client. ke1 Outcome: 03:27 Discharge ordered by . kdr 03:51 Discharged to home ambulatory. ke1 03:51 Condition: good 03:51 Discharge instructions given to patient. 03:52 Patient left the ED. ke1 Signatures: Dispatcher [employer] EDMS Chris Be MD MD kdr [place]ia[place], Brittany bp1 Doucette, Kyli, RN RN kd3 Yisel Gao RN RN ke1 Corrections: (The following items were deleted from the chart) 01:12 01:12 Allergies: material bandaids [Inactive]; kd3 kd3
[2022-05-05 04:50] VITALS: TEMP 98.2; O2SAT 100
[2022-05-05 04:53] VITALS: BP 132/90
--- NOTE | 2022-05-05 11:58 | RAD REPORT ---
EXAM DESCRIPTION: RAD - Chest Single View - 05/05/2022 1:46 am CLINICAL HISTORY: The patient is 31 years old and is Female; CHEST PAIN TECHNIQUE: Frontal view of the chest. COMPARISON: No relevant prior studies available. FINDINGS: Lungs: Unremarkable. No consolidation. Pleural space: Unremarkable. No pneumothorax. Heart: Unremarkable. Mediastinum: Unremarkable. Bones/joints: Unremarkable. IMPRESSION: No acute findings in the chest. Electronically signed by: Gavin Ricks MD 05/05/2022 2:10 AM CDT Due to temporary technical issues with the PACS/Fluency reporting system, reports are being signed by the in house radiologist without review as a courtesy to ensure prompt reporting. The interpreting r adiologist is fully responsible for the content of the report.
--- NOTE | 2022-05-05 12:53 | EKG ---
Test Date: 2022-05-05 Test Time: 01:47:30 Mint Machine Operator: ADDY MEASUREMENT RESULTS: Intervals: Rate: 55 ND: 140 QRSD: 94 QT: 410 QTc: 392 [place]: P: 53 ND: 140 QRS: 80 T: 67 INTERPRETIVE STATEMENTS: Sinus bradycardia Nonspecific T wave abnormality Abnormal ECG Compared to ECG 02/03/2022 19:28:43 Sinus rhythm no longer present T-wave abnormality still present Electronically Signed On 05-05-22 12:52:40 CDT by Stuart Hanks
== END 2022-05-05 03:52 | disposition home or self-care (01) ==
LOC: ER 00:41
DX: R07.9 Chest pain, unspecified (principal); R00.2 Palpitations
CPT/HCPCS: 36415; 71045; 80048; 83880; 84484; 85025; 93005

== ENCOUNTER 2025-03-26 09:45 | Emergency (ER) | payer SELFPAY ==
--- NOTE | 2025-03-26 10:48 | RAD REPORT ---
Exam:Hand Right 3 View HISTORY: Right hand pain FINDINGS: No fracture or dislocation seen
--- NOTE | 2025-03-26 11:25 | RAD REPORT ---
Exam:Elbow Right 3 View HISTORY: Right elbow pain FINDINGS: Subtle lucency radial head. Most likely this is not significant as there does not appear to be a sign ificant elbow joint effusion. If the patient has clinical symptoms to suggest a fracture in this region then CT scan could be obtained. Otherwise, no fracture or dislocation.
--- NOTE | 2025-03-26 11:58 | ER ---
Nurse's Notes [facility] Name: Kirsten Ghotra Age: 34 yrs Sex: Female : 1990 Arrival Date: 03/26/2025 Time: 09:45 Bed 22 Private MD: Diagnosis: Nondisplaced fracture of neck of right radius;Fall from skateboard, initial encounter Presentation: 03/26 10:01 Chief complaint: Patient states: "I was skateboarding yesterday and hit a rock, and ss went flying. I landed with my R arm." Pt c/o pain to R elbow down to R thumb. Coronavirus screen: Client denies travel out of the [place] in the last 14 days. Ebola Screen: Patient denies exposure to infectious person. Patient denies travel to an Ebola-affected area in the 21 days before illness onset. Initial Sepsis Screen: Does the patient meet any 2 criteria? No. Patient's initial sepsis screen is negative. Does the patient have a suspected source of infection? No. Patient's initial sepsis screen is negative. Risk Assessment: Do you want to hurt yourself or someone else? Patient reports no desire to harm self or others. Onset of symptoms was March 25, 2025. 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 - Infectious Disease History:: Denies. - Social history:: Smoking status: Patient denies any tobacco usage or history of. Screenin:06 Abuse screen: Denies threats or abuse. Denies injuries from another. Nutritional ss screening: No deficits noted. Tuberculosis screening: Never had TB. 12:05 [facility] ED Fall Risk Assessment (Adult) History of falling in the last 3 months, kj2 including since admission No falls in past 3 months (0 pts) Confusion or Disorientation No (0 pts) Intoxicated or Sedated No (0 pts) Impaired Gait No (0 pts) Mobility Assist Device Used No (0 pt) Altered Elimination No (0 pt) Score/Fall Risk Level 0 - 2 = Low Risk Maintained a safe environment, Hourly rounding (assess needs \\T\\ fall precautionary measures) done. Assessment: 10:06 General: Appears in no apparent distress. comfortable, Behavior is calm, cooperative, ss Denies fever, feeling ill, fatigue, chills. Pain: Complains of pain in R elbow Pain currently is 7 out of 10 on a pain scale. Quality of pain is described as aching, tender, Pain began yesterday, after falling Is continuous. Neuro: Level of Consciousness is awake, alert, obeys commands, Oriented to person, place, time, situation. Cardiovascular: Pulses are palpable in right radial artery and left radial artery. Respiratory: Airway is patent Respiratory effort is even, unlabored, Respiratory pattern is regular, symmetrical. EENT: Oral mucosa is moist. Derm: Skin is intact, is healthy with good turgor, Skin is dry, Skin is pink, warm \\T\\ dry. normal. 10:08 Reassessment: Pt has sling in place prior to arrival to [facility]. ss 12:19 Reassessment: Patient appears in no apparent distress at this time. Patient and/or kj2 family updated on plan of care and expected duration. Pain level reassessed. Patient is alert, oriented x 3, equal unlabored respirations, skin warm/dry/pink. Vital Signs: 10:01 BP 116 / 79; Pulse 78; Resp 16; Temp 98.6(TE); Pulse Ox 98% on R/A; Weight 63.5 kg; ss Height 5 ft. 4 in. ; Pain 7/10; 12:19 BP 118 / 82; Pulse 74; Resp 20; Temp 98; Pulse Ox 100% ; kj2 10:01 Body Mass Index 24.03 (63.50 kg, 162.56 cm) ss 10:01 Pain Scale: Adult ss ED Course: 09:54 Patient arrived in ED. cj3 09:54 Med Schulte DO is Attending Physician. ms3 10:02 Triage completed. ss 10:02 Arm band placed on right wrist. ss 10:06 Chiqui Oliveira, RN is Primary Nurse. ss 10:06 Patient has correct armband on for positive identification. Bed in low position. Call ss light in reach. 10:36 Elbow Right 3 View In Process Unspecified. EDMS 10:38 Hand Right 3 View XRAY In Process Unspecified. EDMS 11:54 Loy Drake MD is Referral Physician. ms3 12:20 No provider procedures requiring assistance completed. Patient did not have IV access kj2 during this emergency room visit. 12:21 Provided Education on: discharge instructions reviewed. kj2 Administered Medications: No medications were administered Medication: 10:06 VIS not applicable for this client. ss Outcome: 11:57 Discharge ordered by . ms3 12:21 Discharged to home kj2 12:21 Condition: stable 12:21 Discharge instructions given to patient, Instructed on discharge instructions, follow up and referral plans. Demonstrated understanding of instructions, follow-up care, 12:35 Patient left the ED. kj2 Signatures: Dispatcher [employer] EDMS Chiqui Oliveira, RN RN Med Schulte DO DO ms3 Lo Pozo, RN RN kj2 Rossi Foster cj3 Corrections: (The following items were deleted from the chart) 10:02 10:02 Allergies: No Known Allergies; ss ss
--- NOTE | 2025-03-26 11:58 | EDPHYS ---
Physician Documentation [facility] Name: Kirsten Ghotra Age: 34 yrs Sex: Female : 1990 Arrival Date: 03/26/2025 Time: 09:45 Bed 22 Private MD: ED Physician Med Schulte HPI: 03/26 20:17 This 34 yrs old Female presents to ER via Ambulatory with complaints of Fall ms3 Injury - RT ARM. 20:17 34-year-old female with no past medical history presents to the emergency department ms3 for right hand and right elbow pain status post falling while riding a skateboard last night. Patient states her discomfort is 7/10. Patient has not taken medication for her discomfort. 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 - Infectious Disease History:: Denies. - Social history:: Smoking status: Patient denies any tobacco usage or history of. ROS: 20:17 Constitutional: Negative for fever, and chills. Cardiovascular: Negative for chest ms3 pain, and palpitations. Respiratory: Negative for shortness of breath, cough, wheezing, and pleuritic chest pain, Abdomen/GI: Negative for abdominal pain, nausea, vomiting, diarrhea, and constipation, Skin: Negative for injury, rash, and discoloration, 20:17 MS/extremity: Positive for Right elbow and right hand pain, Exam: 20:18 Constitutional: This is a well developed, well nourished patient who is awake, alert, ms3 and in no acute distress. Cardiovascular: Regular rate and rhythm with a normal S1 and S2. No gallops, murmurs, or rubs. Normal PMI, no JVD. No pulse deficits. Respiratory: Lungs have equal breath sounds bilaterally, clear to auscultation and percussion. No rales, rhonchi or wheezes noted. No increased work of breathing, no retractions or nasal flaring. Abdomen/GI: Soft, non-tender, with normal bowel sounds. No distension or tympany. No guarding or rebound. No evidence of tenderness throughout. 20:18 Musculoskeletal/extremity: Extremities: noted in the Right elbow: pain, tenderness, noted in the Right hand: pain, tenderness, Vital Signs: 10:01 BP 116 / 79; Pulse 78; Resp 16; Temp 98.6(TE); Pulse Ox 98% on R/A; Weight 63.5 kg; ss Height 5 ft. 4 in. ; Pain 7/10; 12:19 BP 118 / 82; Pulse 74; Resp 20; Temp 98; Pulse Ox 100% ; kj2 10:01 Body Mass Index 24.03 (63.50 kg, 162.56 cm) ss 10:01 Pain Scale: Adult ss MDM: 10:16 Medical Screening Exam initiated ms3 20:18 Differential diagnosis: contusion, fracture, sprain, strain. Data reviewed: vital ms3 signs, nurses notes, radiologic studies, and as a result, I will discharge patient. Counseling: I had a detailed discussion with the patient and/or guardian regarding the historical points, exam findings, and any diagnostic results supporting the discharge/admit diagnosis, radiology results, the need for outpatient follow up, to return to the emergency department if symptoms worsen or persist or if there are any questions or concerns that arise at home. Special discussion: I discussed with the patient/guardian in detail that at this point there is no indication for admission to the hospital. It is understood, however, that if the symptoms persist or worsen the patient needs to return immediately for re-evaluation. ED course: Discussed x-ray findings with patient. Patient to follow-up with orthopedics in 2 to 3 days. Patient understands agrees to plan. All questions were answered. Return precautions discussed include worsening symptoms, or any other concerns.. 03/26 10:16 Order name: Hand Right 3 View XRAY; Complete Time: 11:34 ms3 03/26 10:36 Order name: Elbow Right 3 View; Complete Time: 11:34 EDMS 03/26 11:53 Order name: Splint - Elbow - Posterior; Complete Time: 12:34 ms3 Administered Medications: No medications were administered Disposition Summary: 03/26/25 11:57 Discharge Ordered Notes: Location: Home ms3 Condition: Stable ms3 Diagnosis - Nondisplaced fracture of neck of right radius ms3 - Fall from skateboard, initial encounter ms3 Followup: ms3 - With: Drake, Loy, MD - When: 2 - 3 days - Reason: Recheck today's complaints Discharge Instructions: - Discharge Summary Sheet ms3 - Elbow Fracture, Pediatric ms3 - Radial Head Elbow Fracture Rehab ms3 Forms: - Medication Reconciliation Form ms3 - Antibiotic Education ms3 - Prescription Opioid Use ms3 - Patient Portal Instructions ms3 - Leadership Thank You Letter ms3 Signatures: Dispatcher [employer] EDMS Chiqui Oliveira, RN RN Med Schulte DO DO ms3 Lo Pozo, SCARLETT RN kj2 Corrections: (The following items were deleted from the chart) 10:02 10:02 Allergies: No Known Allergies; [facility] 10:36 10:17 Elbow Left 3 View+RAD.RAD.BRZ ordered. EDMS EDMS
[2025-03-26 12:53] VITALS: BP 118/82; TEMP 98; O2SAT 100
== END 2025-03-26 12:35 | disposition home or self-care (01) ==
LOC: ER 09:45
PROC: 2W38X1Z Immobilization of Right Upper Extremity using Splint (ICD-10-PCS; principal; 2025-03-26)
DX: S52.134A Nondisplaced fracture of neck of right radius, initial encounter for closed fracture (principal); V00.131A Fall from skateboard, initial encounter